=== PATIENT | male | born 1975 | race Caucasian/White ===

== ENCOUNTER 2020-01-10 13:10 | Outpatient (REF) | payer BC, SELFPAY | END 2020-01-10 13:11 | disposition home or self-care (01) | LOC: HO.LAB 13:10 | PROVIDERS: Visit Provider Internal Medicine | DX: Z20.828 Contact with and (suspected) exposure to other viral communicable diseases (principal) | CPT/HCPCS: C9803; U0003 ==

== ENCOUNTER 2021-03-05 06:14 | Outpatient (REF) | payer BC, SELFPAY ==
[2021-03-05 07:21] LABS: Appearance Urine HAZY; Color Urine YELLOW; Glucose Urine UA NEG (NEG); Leukocyte Esterase Urine NEG (NEG); Nitrite Urine NEG (NEG); Specific Gravity - Urine >= 1.030 (1.005-1.025); UACC Culture Trigger NO; Urine Blood 1+ (NEG); Urine Ketones NEG (NEG); Urine Protein TRACE MG/DL (NEG-TRACE)
[2021-03-05 07:24] LABS: Basophils Percent Auto 0.5 % (0-2); Eosinophils Absolute Auto 0.1 X10*3/uL (0.0-0.4); Hemoglobin 14.5 g/dl (14.0-18.0); Imm Gran Abs Auto 0.01 X10*3/uL (0.00-0.03); Imm Gran Pct Auto 0.1 % (0.0-0.4); Lymphocytes Percent Auto 69.1 % (20-40); MANUAL DIFF FLAG SCAN; Mean Corpuscular HGB Conc 33.7 g/dl (31.0-36.0); Mean Corpuscular Hemoglobin 28.7 pg (27.0-33.0); Mean Corpuscular Volume 85.1 fL (80.0-98.0); Mean Platelet Volume 9.8 fL (9.4-12.4); Monocytes Absolute Auto 0.4 X10*3/uL (0.1-1.2); Monocytes Percent Auto 4.4 % (2-11); Neutrophils Absolute Auto 2.2 x10*3/uL (2.0-8.3); Neutrophils Percent Auto 24.9 % (45-73); Platelet Count 145 X10*3/uL (160-400); Red Blood Count 5.05 X10*6/uL (4.60-5.80); SCAN SMEAR FLAG 1; White Blood Count 8.7 X10*3/uL (4.8-10.8)
[2021-03-05 07:46] LABS: Mucus Urine 4+ /LPF; Squamous Epithelial Cell Urine TRACE /LPF; WBC Urine 0 /HPF (0-4)
[2021-03-05 07:56] LABS: SLIDE REVIEW VERIFIED
[2021-03-05 08:10] LABS: Alanine Aminotransferase 13 U/L (0-40); Albumin Level 4.3 g/dL (3.5-5.0); Alkaline Phosphatase 45 U/L (39-117); Anion Gap 11 (12-20); Aspartate Amino Transferase 11 U/L (5-37); Bilirubin Total 0.5 mg/dL (0.0-1.0); Blood Urea Nitrogen 13 mg/dL (9-16); Calcium 9.1 mg/dL (8.4-10.2); Carbon Dioxide 27 mmol/L (22-29); Chloride 106 mmol/L (96-108); Cholesterol 232 mg/dL; Estimated Glomerular Filt Rate > 60; Glucose Fasting 108 mg/dL (60-99); HDL Cholesterol 48 mg/dL; LDL Cholesterol Calculated 161 mg/dl; Potassium 4.1 mmol/L (3.3-5.1); Sodium 140 mmol/L (135-145); Total Protein 6.5 g/dL (6.5-8.0); Triglycerides 115 mg/dL
[2021-03-05 08:15] LABS: TSH reflex Free T4 1.24 uIU/mL (0.32-4.0); Vitamin D 25-OH Total 15.9 ng/mL (>30)
== END 2021-03-05 06:15 | disposition home or self-care (01) ==
LOC: HO.LAB 06:14
PROVIDERS: PCP Internal Medicine; Visit Provider Internal Medicine
DX: Z00.00 Encounter for general adult medical examination without abnormal findings (principal); E78.00 Pure hypercholesterolemia, unspecified; E55.9 Vitamin D deficiency, unspecified
CPT/HCPCS: 36415; 80053; 80061; 81001; 82306; 84443; 85025

== ENCOUNTER 2021-03-14 08:45 | Outpatient (REF) | payer BC, SELFPAY ==
--- NOTE | 2021-03-14 08:49 | EMG_ITS ---
This is a 45-year-old man with left upper extremity pain in the forearm and arm off and on for 2 months. He has had a couple of courses of Medrol, which helped briefly. His neurological examination is normal. There is no Tinel or Phalen sign. IMPRESSION: Rule out cervical radiculopathy. Nerve conduction EMG study: Early carpal tunnel syndrome on the left, which appears to be an incidental finding. Normal EMG of the left C5-T1 innervated muscles. MD ELBA Burkett/[facility] / [id number]
== END 2021-03-14 08:46 | disposition home or self-care (01) ==
LOC: HO.NEURO 08:45
PROVIDERS: PCP Internal Medicine; Visit Provider Internal Medicine
DX: R20.2 Paresthesia of skin (principal)
CPT/HCPCS: 95885; 95910

== ENCOUNTER → 2021-06-06 08:06 | Outpatient (BNVA) | payer BC, SELFPAY | PROVIDERS: PCP Internal Medicine; Referring Provider Internal Medicine; Visit Provider Physician Assistant | DX: Z13.89 Encounter for screening for other disorder (principal) ==

== ENCOUNTER 2021-10-09 10:26 | Day surgery (SDC) | payer BC, SELFPAY ==
[2021-10-03 16:01] VITALS: BMI 21.4
--- NOTE | 2021-10-08 10:10 | HO.ANESPROP2 ---
Documented by User: Julieth Beauchamp NP 10/08/21 10:12 HPI - Anesthesia Eval Consult details Narrative: 46yo M for Colonoscopy PMF Active Problems Active Problems: All Active Problems (Updated 06/06/21 @ 08:20 by Nidia Donovan PA-C) Carpal tunnel syndrome of left wrist (Acute) Vitamin D deficiency (Acute) Pure hypercholesterolemia (Acute) Colon cancer screening (Acute) Constipation (Acute) Depression (Acute) Anxiety (Acute) Paresthesia of left arm (Acute) Annual physical exam (Acute) Elbow pain, left (Acute) Chest pain (Acute) Cervical radiculopathy (Acute) Past Medical History Medical History Anxiety Carpal tunnel syndrome of left wrist Constipation Depression Pure hypercholesterolemia Vitamin D deficiency Family History Family History Father No problems noted. Mother No problems noted. Surgical History Surgical History No pertinent past surgical history Social History Social History Housing: House Alcohol intake: current Alcohol intake frequency: holidays/special occasions only Patient Tobacco Use Status: Former Tobacco user Quit Date: 2016 Second Hand Smoke Exposure: Yes Use of substances other than those prescribed or required for medical reasons: Yes Substance Use Frequency: Occasionally Are you DNR?: No Advance Directives: No Advance Directives Information Provided: Yes service: No Current occupational status: employed Cognitive needs: No Hearing needs: No Vision needs: No Meds Allergies Allergy/AdvReac Type Severity Reaction Status Date / Time No Known Allergies Allergy Verified 06/06/21 08:16 [No Known Allergies*] Exam Exam Date and Time: October 08, 2021 1010 Height,Weight and Vital Signs: Height 6 ft 1 in Weight 73.936 kg Pertinent Lab Results Pertinent Lab Results: Laboratory Tests 03/05/21 03/05/21 06:28 06:28 WBC 8.7 Hgb 14.5 Hct 43.0 Plt Count 145 L Sodium 140 Potassium 4.1 Chloride 106 Carbon Dioxide 27 BUN 13 Creatinine 0.79 Assessment and Plan Assessment Anesthesia Assessment: Chart Reviewed Documented by User: Aleja Henley MD 10/09/21 11:08 PMFSH Past Medical History Medical History Anxiety Carpal tunnel syndrome of left wrist Constipation Depression Pure hypercholesterolemia Vitamin D deficiency Family History Family History Father No problems noted. Mother No problems noted. Surgical History Surgical History No pertinent past surgical history History of Problems with Anesthesia: No Social History Social History Housing: House Alcohol intake: current Alcohol intake frequency: holidays/special occasions only Patient Tobacco Use Status: Former Tobacco user Quit Date: 2016 Second Hand Smoke Exposure: Yes Use of substances other than those prescribed or required for medical reasons: Yes Substance Use Frequency: Occasionally Are you DNR?: No Advance Directives: No Advance Directives Information Provided: Yes service: No Current occupational status: employed Cognitive needs: No Hearing needs: No Vision needs: No Meds Allergies Allergy/AdvReac Type Severity Reaction Status Date / Time No Known Allergies Allergy Verified 06/06/21 08:16 [No Known Allergies*] Exam Airway Mallampati Class: II TM Dist: >3cm Neck ROM: Full Loose/Missing/Broken Teeth: No Heart: RRR Lungs: CTA Assessment and Plan Assessment Anesthesia Assessment: Anesthesia Plan Discussed Final Anesthetic Review History of Problems with Anesthesia: No NPO: Yes ASA Class: II Final Preanesthetic Review: Meds/Allgs Chart Reviewed, Consent Obtained/Reviewed and Anes Risks/Benef Reviewed Patient Risk: Low Procedure Risk: Low Anesthetic Plan Anesthetic Plan: MAC: Disposition: Standard PACU
[2021-10-09 10:41] VITALS: BP 128/81; PULSE 94; RESP 16; TEMP 36.7; O2SAT 96
[2021-10-09] MEDS: Lactated Ringers 1,000 ML 100 ML IVCONT (10:49)
--- NOTE | 2021-10-09 10:49 | MHC.SHP ---
Pre-Procedural Eval Section A Date of Service: 10/09/21 Section B Chief Complaint: screening Relevant Family History (Specify if Yes): No Relevant Social History: None Present Medications: see Short Stay Collaborative assessment Medical History: Significant History (Anxiety Carpal tunnel syndrome of left wrist Constipation Depression Pure hypercholesterolemia Vitamin D deficiency) History of Previous Operations: No relevant previous surgery Allergies: Allergies Allergy/AdvReac Type Severity Reaction Status Date / Time No Known Allergies Allergy Verified 06/06/21 08:16 [No Known Allergies*] Review of Systems Sugical H&P ROS: Negative: Constitution, Cardiovascular, Respiratory, Neurological, Psychiatric, Hem-Onc, Allergic/Immunologic, Gastrointestinal, Genitourinary, Musculoskeletal, Integumentary, Endocrine and Eyes/Ears/Nose/Throat Exam Surgical H&P Exam: Normal: HEENT, Normal: Heart, Normal: Lungs, Normal: Extremities, Normal: Abdomen, Normal: Skin and Normal: Neurological Plan Diagnosis/Plan: Unchanged I have reviewed the history and physical and performed a pertinent physical examination on my patient. No changes have occurred unless specified.
--- NOTE | 2021-10-09 12:43 | W.PM.OPN ---
Operative Note Operative Note Date of Service: 10/09/21 Narrative: Operative Information Procedure Description: Colonoscopy Indication: screening Anesthesia: MAC COLONOSCOPY Instrument: Olympus variable stiffness pediatric scope 190L Colonoscopy Monitoring: Vital signs and clinical assessment, continuous EKG monitoring, Pulse oximetry, Carbon Dioxide monitoring and blood pressure monitoring were done throughout the procedure. Colon withdrawal time was 75 minutes. Procedure: The patient was placed in the left lateral decubitis position and pre-procedure medications were administered. After a digital rectal examination of the ano-rectum, the video colonoscope was inserted into the rectum and advanced through the colon to the cecum/TI. The colonoscope was slowly withdrawn in a retrograde panoramic fashion and the colon mucosa was carefully examined including a retroflexed view of the rectum. Findings and interventions are described below. Procedure Difficulty: easy Findings: Terminal Ileum-normal Cecum:normal Ascending Colon: laterally spreading granular polypoid lesion noted- Andressa IIa measuring about 2-3 cm. This was lifted with ERBE jet and then removed with hot snare. Small amount of residual tissue was removed with biopsy forceps and then the base was treated with 30 W of APC. 4 clips were applied with closure of defect and then hemospray applied Transverse Colon -normal Descending Colon: 10-12 mm sessile polyp removed with cold snare Sigmoid Colon: normal Rectum: Retroflexion with moderate sized internal hemorrhoids, grade I, 2 cm semipedunculated polypoid lesion noted at around 8-10 cm from anal verge. This was injected with few cc of epinephrine and then removed with hot snare, with x 2 clips applied. Anorectum - normal Colon preparation: [place] Bowel Preparation Scale Right colon; 3 Transverse colon: 3 Left colon; 3 (0 = Unprepared colon segment with mucosa not seen due to solid stool that cannot be cleared. 1 = Portion of mucosa of the colon segment seen, but other areas of the colon segment not well seen due to staining, residual stool and/or opaque liquid. 2 = Minor amount of residual staining, small fragments of stool and/or opaque liquid, but mucosa of colon segment seen well. 3 = Entire mucosa of colon segment seen well with no residual staining, small fragments of stool or opaque liquid) Impression and Post Procedure Diagnosis: polyps internal hemorrhoids Plan: High fiber diet leaflet Avoid straining at stool, epsom salts and sitz bath, anusol supps or cream Repeat Colonoscopy in 3-6 months or earlier if clinically indicated To come to ED if any worsening abdominal pain, fevers, bloody stools avoid nsaids for 5 days Above findings were reviewed with the patient and relevant handouts were provided if indicated.
[2021-10-09 12:51] VITALS: BP 117/71; PULSE 65; RESP 16; TEMP 36.1; O2SAT 99
[2021-10-09 13:06] VITALS: BP 123/76; PULSE 61; RESP 12; TEMP 36.3; O2SAT 99
== END 2021-10-09 13:38 | disposition home or self-care (01) ==
LOC: HO.SSS 10:26
PROVIDERS: PCP Internal Medicine; Visit Provider Internal Medicine Gastroenterology
PROC: 0DJD8ZZ Inspection of Lower Intestinal Tract, Via Natural or Artificial Opening Endoscopic (ICD-10-PCS; CPT 45378; principal; 2021-10-09 11:40)
DX: Z12.11 Encounter for screening for malignant neoplasm of colon (principal); D12.2 Benign neoplasm of ascending colon; D12.8 Benign neoplasm of rectum; K63.5 Polyp of colon; K64.0 First degree hemorrhoids; K59.00 Constipation, unspecified; F41.1 Generalized anxiety disorder; E78.00 Pure hypercholesterolemia, unspecified; E55.9 Vitamin D deficiency, unspecified; F32.A Depression, unspecified; Z79.899 Other long term (current) drug therapy; Z87.891 Personal history of nicotine dependence
CPT/HCPCS: 45385; 45380; 45381; 88305; C2618; J0171; J1610; J2250; Q9968

== ENCOUNTER 2022-01-11 08:46 | Outpatient (REF) | payer BC, SELFPAY ==
[2022-01-11 12:01] LABS: Alanine Aminotransferase 13 U/L (0-40); Albumin Level 4.3 g/dL (3.5-5.0); Alkaline Phosphatase 46 U/L (39-117); Anion Gap 16 (12-20); Aspartate Amino Transferase 17 U/L (5-37); Bilirubin Total 0.9 mg/dL (0.0-1.0); Blood Urea Nitrogen 12 mg/dL (9-16); Calcium 8.8 mg/dL (8.4-10.2); Carbon Dioxide 25 mmol/L (22-29); Chloride 103 mmol/L (96-108); Cholesterol 210 mg/dL; Estimated Glomerular Filt Rate > 60; Glucose Fasting 97 mg/dL (60-99); HDL Cholesterol 50 mg/dL; LDL Cholesterol Calculated 146 mg/dl; Potassium 4.5 mmol/L (3.3-5.1); Sodium 139 mmol/L (135-145); Total Protein 6.5 g/dL (6.5-8.0); Triglycerides 73 mg/dL
[2022-01-11 12:21] LABS: TSH reflex Free T4 0.62 uIU/mL (0.32-4.0)
== END 2022-01-11 08:47 | disposition home or self-care (01) ==
LOC: HO.HMGCLDS 08:46
PROVIDERS: PCP Internal Medicine; Visit Provider Internal Medicine
DX: E55.9 Vitamin D deficiency, unspecified (principal); E78.00 Pure hypercholesterolemia, unspecified
CPT/HCPCS: 36415; 80053; 80061; 82306; 84443

== ENCOUNTER → 2023-11-20 14:04 | Outpatient (BNVA) | payer SELFPAY | PROVIDERS: PCP Internal Medicine; Visit Provider Physician Assistant Medical | DX: Z02.79 Encounter for issue of other medical certificate (principal) ==

== ENCOUNTER 2024-02-10 16:34 | Outpatient (AMB) | payer SELFPAY ==
[2024-02-10 16:36] VITALS: BP 120/72; PULSE 78; O2SAT 96; BMI 23.1
--- NOTE | 2024-02-10 16:36 | MHC.PC.OV ---
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 Accompanied by: Self / Same As Patient Allergies No Known Allergies [No Known Allergies*] Allergy (Verified 02/11/24 04:42) Medication List - Last Reconciled 02/11/24 by Kaden Rinaldi MD citalopram 10 mg PO DAILY 90 days Tobacco use date assessed: 02/10/24 Dental Screening Dental Screen Date: 02/10/24 Did you have a dental visit in the last 12 months?: No Did you have a dental problem in the last 6 months where you did not have access to dental care?: No Was dental information given to patient?: No HPI PE HPI Details Patient comes in today for his annual physical examination He has not been back in over 2 years - was last seen on 11/23/2021 Patient states that he feels well and that his mood disorder is doing well on his current medication - is still on Citalopram at 10 mg once a day He denies any headaches or dizziness Denies any chest pains, no increased shortness of breath No nausea/vomiting, no abdominal pain No change in bowel habits noted He denies any acute urinary symptoms He had his screening colonoscopy done back in October 2021 - he had some villous and tubulovillous adenomas removed during his colonoscopy and he was advised to have a repeat colonoscopy done in 3-6 months but patient was lost to follow-up until now We will try to get him back in with gastroenterology to get his colonoscopy repeated [facility] Medical History (Updated 02/11/24 @ 04:49 by Kaden Rinaldi MD) Tubulovillous adenoma of colon Carpal tunnel syndrome of left wrist Vitamin D deficiency Pure hypercholesterolemia Constipation Depression Anxiety Surgical History Hx of colonoscopy (~10/09/21) No pertinent past surgical history Family History Father No problems noted. Mother No problems noted. Social History Housing: House Alcohol intake: current Alcohol intake frequency: holidays/special occasions only Patient Tobacco Use Status: Former Tobacco user e-Cigarette/Vaping Use: Never Used Second Hand Smoke Exposure: Yes service: No Current occupational status: employed Cognitive needs: No Hearing needs: No Vision needs: No Questionnaire PHQ-9 Over the last 2 weeks, how often have you been bothered by any of the following problems? 1. Little interest or pleasure in doing things: not at all 2. Feeling down, depressed, or hopeless: not at all 3. Trouble falling or staying asleep, or sleeping too much: not at all 4. Feeling tired or having little energy: not at all 5. Poor appetite or overeating: not at all 6. Feeling bad about yourself - or that you are a failure or have let yourself or your family down: not at all 7. Trouble concentrating on things, such as reading the newspaper or watching television: not at all 8. Moving or speaking so slowly that other people could have noticed. Or the opposite - being so fidgety or restless that you have been moving around a lot more than usual: not at all 9. Thoughts that you would be better off or of hurting yourself in some way: not at all Total score: 0 Depression Screening Interpretation: Negative (is on Rx for depression and anxiety) Depression Screening Done: Yes 45718 - PHQ-9 Billing: Yes Source: Developed by Drs. Domenic Andrews, Anju Myers, Joce Echavarria and colleagues, with an educational eros from [employer]. Thrive Questionnaire Date Thrive assessed: 02/10/24 I am a: Patient What is your living situation today?: I have a steady place to live Within the past 12 months, did the food you bought not last and you didn't have the money to get more?: Never true Within the past 12 months, did you worry whether your food would run out before you got money to buy more?: Never true Do you have trouble paying for medicines?: No Do you have trouble getting transportation to medical appointments?: No Do you have trouble paying your heating and electricity bill?: No Do you have trouble taking care of your child, family member or friend?: No Do you have trouble with day-to-day activities such as bathing, preparing meals, shopping, managing finances, etc.?: No Are you currently unemployed and looking for a job?: No Are you interested in more education?: No Please select the resources that you would like help with: None Currently or been in a relationship where the following occur: No concerns reported THRIVE Score: 0 AUDIT C Alcohol Use Questionnaire (AUDIT-C) 1. How often do you have a drink containing alcohol?: 2-3 times a week 2. How many drinks containing alcohol do you have on a typical day when you are drinking?: 1 or 2 3. How often do you have six or more drinks on one occasion?: Never Total Score: 3 Score Reviewed/Action Taken: Yes ANA-7 AMB Questionnaire ANA-7 Date ANA - 7 assessed: 02/10/24 Feeling nervous, anxious, or on edge: 0 = Not at all Not being able to stop or control worryin = Not at all Worrying too much about different things: 0 = Not at all Trouble relaxin = Not at all Being so restless that it is hard to sit still: 0 = Not at all Becoming easily annoyed or irritable: 0 = Not at all Feeling afraid as if something awful might happen: 0 = Not at all Total ANA-7 score (0-4 normal; 5-9 mild; 10-14 moderate; 15-21 severe): 0 Source: Developed by Drs. Domenic Andrews, Anju Myers, Joce Echavarria and colleagues, with an educational eros from [employer]. Review of Systems Const Denies chills, Denies fatigue, Denies fever(s), Denies headache(s), Denies malaise and Denies weakness Eyes Denies blurry vision, Denies change in vision, Denies irritation and Denies itchy eyes ENT Denies dysphagia, Denies dizziness, Denies otalgia, Denies headache(s), Denies nasal congestion, Denies neck pain, Denies odynophagia and Denies sore throat Card Denies chest pain, Denies rapid heart rate, Denies irregular heart rhythm, Denies palpitations and Denies dyspnea Resp Denies chest congestion, Denies cough, Denies dyspnea and Denies wheezing GI Denies abdominal pain, Denies bloating, Denies constipation, Denies dysphagia, Denies heartburn, Denies diarrhea, Denies nausea, Denies odynophagia and Denies vomiting Denies hematuria, Denies difficulty urinating, Denies dysuria, Denies urinary frequency and Denies urinary urgency Musc Denies back pain, Denies arthralgias, Denies joint swelling, Denies muscle weakness and Denies neck pain Skin/Breast Denies change in pigmentation, Denies lesions, Denies rash and Denies unusual bruising Neuro Denies dizziness, Denies headache(s), Denies paresthesias and Denies weakness Endo Denies fatigue and Denies palpitations Aller/Immun Denies itchy eyes and Denies wheezing Physical exam (Primary Care) Vital Signs: Last Vital Signs Pulse 78 02/10/24 16:36 BP 120/72 02/10/24 16:36 Pulse Ox 96 02/10/24 16:36 Oxygen Delivery Method Room Air 02/10/24 16:36 BMI result Body Mass Index 23.1 Tobacco/Smoking Status: Tobacco use Status Tobacco use date assessed 02/10/24 02/10/24 16:41 Patient Tobacco Use Status Former Tobacco user 02/10/24 16:41 e-Cigarette/Vaping Use Never Used 02/10/24 16:41 PHQ-9: PHQ-9 Score PHQ-9: Total score 0 02/10/24 16:50 Depression Screening Interpretation: Negative (is on Rx for depression and anxiety) Thrive Assessment: Date of Thrive Assessment Date Thrive assessed 02/10/24 02/10/24 16:41 Currently or been in a relationship where the following occur: No concerns reported Const General: no acute distress, alert and awake Orientation/consciousness: patient oriented x3 HENMT Head: Yes normocephalic and Yes atraumatic Ears: external ears normal, TM's normal bilaterally and EAC's normal General nose exam: No nasal discharge present Face and sinus: Yes normal facial exam and Yes sinuses nontender Teeth and gingiva: dentition normal Throat: Yes posterior oropharynx normal and Yes tonsils normal (no TP congestion) Eyes Eyelids: Yes eyelids normal Conjunctivae: conjunctivae normal Pupils: Equal, round and reactive pupils present EOM: EOMs intact bilaterally Neck Neck: Yes supple and No lymphadenopathy Thyroid: Thyroid normal Resp Auscultation: clear to auscultation bilaterally, no rales and no wheezes Cardio Rate: regular rate Rhythm: regular rhythm Heart sounds: no murmurs GI Palpation (GI): Soft to palpation, nontender and No hepatosplenomegaly present Auscultation: normal bowel sounds General: Yes no CVA tenderness Back/Spine/Pelvis Back: no CVA tenderness Thoracic/Lumbar Spine: thoracic and lumbar spine normal to inspection Skin Lesions: no lesions Rashes: no rashes Neuro General: patient oriented x3, moves all extremities, no focal motor deficits and CN's II-XI intact bilaterally Cranial nerves: Yes Equal, round and reactive pupils present Cognition (Neuro): normal cognition Gait exam (Neuro): Normal gait present Extrem General: Yes no clubbing, cyanosis or edema Coding Level of Care Code Est Pt Prev Care 40-64y(19716) Diagnoses Annual physical exam Z00.00 Pure hypercholesterolemia E78.00 Vitamin D deficiency E55.9 Carpal tunnel syndrome of left wrist G56.02 Constipation, unspecified constipation type K59.00 Constipation type: unspecified constipation type Anxiety F41.9 Episode of recurrent major depressive disorder, unspecified depression episode severity F33.9 Depression Type: major depressive disorder Major depression recurrence: recurrent Active/Remission status: currently active Major depression episode severity: unspecified Tubulovillous adenoma of colon D12.6 Additional Codes PHQ-9 - 21043 - PHQ-9 Billing: Yes ([id number]) Assessment & Plan Assessment & Plan (1) Annual physical exam: Code(s): Z00.00 - Encounter for general adult medical examination without abnormal findings Category: Medical Plan: Check labs (2) Pure hypercholesterolemia: Code(s): E78.00 - Pure hypercholesterolemia, unspecified Category: Medical Plan: Reinforced low-cholesterol diet Patient is reminded that his cholesterol levels were still elevated when they were last checked a couple of years ago in January 2022, with his total cholesterol at 210 mg/dL and LDL cholesterol 146 mg/dL Will have him recheck his fasting lipids [facility] [place] (3) Vitamin D deficiency: Code(s): E55.9 - Vitamin D deficiency, unspecified Category: Medical Plan: Continue Vitamin D3 2000 units QD Will recheck his Vitamin D level as well for follow up (4) Carpal tunnel syndrome of left wrist: Code(s): G56.02 - Carpal tunnel syndrome, left upper limb Category: Medical Plan: EMG & NCV done in March 2021 revealed (+) early carpal tunnel syndrome on his left upper extremity; EMG is normal EMG and NCV findings are normal on the right upper extremity Reinforced use of wrist splints as needed to help manage his left wrist symptoms - states that his left wrist has not really been bothering him too much lately (5) Constipation: Comment: consistent bowel regimen- HFD Code(s): K59.00 - Constipation, unspecified Category: Medical Qualifiers: Constipation type: unspecified constipation type Qualified Code(s): K59.00 - Constipation, unspecified Plan: He is again encouraged on increased oral fluids and dietary fiber States that his constipation has been controlled on Miralax 17 gm QD (6) Anxiety: Code(s): F41.9 - Anxiety disorder, unspecified Category: Medical Plan: He is doing well on Citalopram 10 mg QD (7) Depression: Code(s): F32.A - Depression, unspecified Category: Medical Qualifiers: Depression Type: major depressive disorder Major depression recurrence: recurrent Active/Remission status: currently active Major depression episode severity: unspecified Qualified Code(s): F33.9 - Major depressive disorder, recurrent, unspecified Plan: Continue Citalopram 10 mg QD Follow up with psychiatry as scheduled (8) Tubulovillous adenoma of colon: Code(s): D12.6 - Benign neoplasm of colon, unspecified Category: Medical Plan: Patient was supposed to have a repeat colonoscopy done in 3-6 months following his previous one done in October 2021 but was somehow lost to follow-up As he is presenting again today for his annual physical examination, will also take the opportunity to refer him back to gastroenterology [facility] [place] repeat colonoscopy He is again reminded that due to his colonoscopy findings, recommended that all of his first-degree relatives should begin their own colon cancer screening no later than age 35 Plan Follow-up in 6 months Orders: Orders Complete Blood Count Auto Diff 02/10/24 D64.9 - Anemia, unspecified, Z00.00 - Encounter for general adult medical examination without abnormal findings Lipid Panel 02/10/24 E78.00 - Pure hypercholesterolemia, unspecified, Z00.00 - Encounter for general adult medical examination without abnormal findings Vitamin D 25-OH Total 02/10/24 E55.9 - Vitamin D deficiency, unspecified, Z00.00 - Encounter for general adult medical examination without abnormal findings Comprehensive Success. Panel Fast 02/10/24 E78.00 - Pure hypercholesterolemia, unspecified, Z00.00 - Encounter for general adult medical examination without abnormal findings TSH reflex Free T4 02/10/24 E78.00 - Pure hypercholesterolemia, unspecified, Z00.00 - Encounter for general adult medical examination without abnormal findings UA CC w/rflx Micro + Cult 02/10/24 R30.0 - Dysuria, Z00.00 - Encounter for general adult medical examination without abnormal findings Prostate Specific Antigen Scr 02/10/24 Z00.00 - Encounter for general adult medical examination without abnormal findings Hemoglobin A1c 02/10/24 R73.9 - Hyperglycemia, unspecified, Z00.00 - Encounter for general adult medical examination without abnormal findings Referrals Gastroenterology Referral Z12.11 - Encounter for screening for malignant neoplasm of colon Medications: Changed From citalopram 10 mg PO DAILY 90 tabs 0RF To citalopram 10 mg PO DAILY 90 days 90 tabs 1RF
== END 2024-02-10 16:54 | disposition home or self-care (01) ==
PROVIDERS: PCP Internal Medicine; Visit Provider Internal Medicine
DX: Z00.00 Encounter for general adult medical examination without abnormal findings (principal); E78.00 Pure hypercholesterolemia, unspecified; E55.9 Vitamin D deficiency, unspecified; F33.9 Major depressive disorder, recurrent, unspecified; G56.02 Carpal tunnel syndrome, left upper limb; K59.00 Constipation, unspecified; F41.9 Anxiety disorder, unspecified; D12.6 Benign neoplasm of colon, unspecified

== ENCOUNTER → 2024-02-10 16:34 | Outpatient (BNVA) | payer SELFPAY | PROVIDERS: PCP Internal Medicine; Visit Provider Internal Medicine | DX: Z00.00 Encounter for general adult medical examination without abnormal findings (principal); E78.00 Pure hypercholesterolemia, unspecified; E55.9 Vitamin D deficiency, unspecified; G56.02 Carpal tunnel syndrome, left upper limb; K59.00 Constipation, unspecified; F41.9 Anxiety disorder, unspecified; F33.9 Major depressive disorder, recurrent, unspecified; Z79.899 Other long term (current) drug therapy; Z86.0101 Personal history of adenomatous and serrated colon polyps | CPT/HCPCS: 96127; 99396 ==

== ENCOUNTER 2024-03-06 09:03 | Outpatient (REF) | payer BC, SELFPAY ==
[2024-03-06 09:16] LABS: MANUAL DIFF FLAG NO
[2024-03-06 10:00] LABS: Basophils Percent Auto 0.5 % (0-2); Eosinophils Absolute Auto 0.1 X10*3/uL (0.0-0.4); Eosinophils Percent Auto 1.2 % (0-4); Hematocrit 42.4 % (42.0-52.0); Hemoglobin 14.6 g/dl (14.0-18.0); Imm Gran Abs Auto 0.02 X10*3/uL (0.00-0.03); Imm Gran Pct Auto 0.3 % (0.0-0.4); Lymphocytes Absolute Auto 3.6 X10*3/uL (1.2-4.9); Mean Corpuscular HGB Conc 34.4 g/dl (31.0-36.0); Mean Corpuscular Hemoglobin 28.3 pg (27.0-33.0); Mean Corpuscular Volume 82.2 fL (80.0-98.0); Mean Platelet Volume 9.4 fL (9.4-12.4); Monocytes Absolute Auto 0.3 X10*3/uL (0.1-1.2); Monocytes Percent Auto 5.1 % (2-11); Neutrophils Percent Auto 32.9 % (45-73); Platelet Count 153 X10*3/uL (160-400); Red Blood Count 5.16 X10*6/uL (4.60-5.80); Red Cell Distribution Width 12.4 % (11.0-16.0)
[2024-03-06 10:19] LABS: Estimated Average Glucose 97 mg/dL; Hemoglobin A1C 119.1349 umol/L; Total Hemoglobin (HGBA1C) 3816.1323 umol/L
[2024-03-06 10:23] LABS: Color Urine Yellow; Glucose Urine UA Negative (Negative); Leukocyte Esterase Urine Negative (Negative); Nitrite Urine Negative (Negative); Urine Blood Negative (Negative); Urine Ketones 15 mg/dL (Negative); Urine Protein Negative (Neg-Trace)
[2024-03-06 10:24] LABS: Appearance Urine Clear
[2024-03-06 10:30] LABS: Alanine Aminotransferase 16 U/L (0-40); Albumin Level 4.4 g/dL (3.5-5.0); Alkaline Phosphatase 51 U/L (39-117); Anion Gap 12 (12-20); Aspartate Amino Transferase 20 U/L (5-37); Bilirubin Total 0.9 mg/dL (0.0-1.0); Blood Urea Nitrogen 12 mg/dL (9-16); Calcium 9.4 mg/dL (8.4-10.2); Carbon Dioxide 27 mmol/L (22-29); Chloride 107 mmol/L (96-108); Cholesterol 232 mg/dL (<200); Estimated Glomerular Filt Rate > 60; Glucose Fasting 101 mg/dL (60-99); HDL Cholesterol 47 mg/dL (>40); LDL Cholesterol Calculated 168 mg/dL (<100); Potassium 4.3 mmol/L (3.3-5.1); Sodium 142 mmol/L (135-145); Total Protein 6.9 g/dL (6.5-8.0); Triglycerides 87 mg/dL (<150)
[2024-03-06 10:43] LABS: Prostate Specific Antigen Scr 0.32 ng/mL (<0.05-4.0)
[2024-03-06 10:47] LABS: TSH reflex Free T4 1.36 uIU/mL (0.32-4.0); Vitamin D 25-OH Total 30.9 ng/mL (>30)
== END 2024-03-06 09:04 | disposition home or self-care (01) ==
LOC: HO.LAB 09:03
PROVIDERS: PCP Internal Medicine; Visit Provider Internal Medicine
DX: Z00.00 Encounter for general adult medical examination without abnormal findings (principal); E78.00 Pure hypercholesterolemia, unspecified; E55.9 Vitamin D deficiency, unspecified; R30.0 Dysuria; R73.9 Hyperglycemia, unspecified; D64.9 Anemia, unspecified; Z12.5 Encounter for screening for malignant neoplasm of prostate
CPT/HCPCS: 36415; 80053; 80061; 81003; 82306; 83036; 84153; 84443; 85025

== ENCOUNTER 2024-04-23 10:39 | Outpatient (AMB) | payer BC, SELFPAY ==
--- NOTE | 2024-04-23 10:41 | A.OFFVIS_ITS ---
Vital Signs 04/23/24 10:42 Height 6 ft Weight 178 lb 9.191 oz BMI 24.2 BP 117/62 Blood Pressure Location Lt brachial Position Sitting Pulse 71 Intake Visit Reasons: rediscuss colonoscopy Intake Note: presents in the office as a colo screening to rajni. CC: states he has a growling in his stomach at times but other than that he feels okay with no GI concerns. Allergies No Known Allergies [No Known Allergies*] Allergy (Verified 04/23/24 10:44) HPI HPI rediscuss colonoscopy: Details: 48 yr old m here for f/u He is overdue on colonoscopy, he had index colonoscopy 2021 with several polyps noted, some were large and were tubulovillous grandfather had pancreatic cancer no FH of CRC stools can be small sometimes, like balls no blood no abdominal pain EXAM: GENERAL: The patient is well developed and nontoxic. VITAL SIGNS:see workflow HEENT: Nonicteric sclerae, PERRLA, EOMI. Oropharynx clear. Moist mucous membra mohini. Conjunctivae appear well perfused. No thyroid mass. CHEST: Chest wall is nontender. HEART: Regular rate and rhythm without murmurs. LUNGS: Clear to auscultation bilaterally. ABDOMEN: Soft, positive bowel sounds, nontender, no organomegaly.no flank tenderness SKIN: No rash, no excessive bruising, petechiae, or purpura. NEUROLOGIC: Cranial nerves II-XII intact without motor/sensory deficit. Psych: normal affect A/P: 1/ Large polyps on index colo--overdue on surveillance PLAN: 1/ colonoscopy with suprep OLIVIA--have hybrid APC on standby 2/ hand referral, tender nodule on left index finger PFSH Medical History Tubulovillous adenoma of colon Carpal tunnel syndrome of left wrist Vitamin D deficiency Pure hypercholesterolemia Constipation Depression Anxiety Surgical History Hx of colonoscopy (~10/09/21) No pertinent past surgical history Family History Father No problems noted. Mother No problems noted. Social History Housing: House Alcohol intake: current Alcohol intake frequency: holidays/special occasions only Patient Tobacco Use Status: Former Tobacco user e-Cigarette/Vaping Use: Never Used Second Hand Smoke Exposure: Yes service: No Current occupational status: employed Cognitive needs: No Hearing needs: No Vision needs: No Physical Exam Vital Signs: Last Vital Signs Pulse 71 04/23/24 10:42 BP 117/62 04/23/24 10:42 BMI result Body Mass Index 24.2 Assessment & Plan Assessment & Plan (1) Tubulovillous adenoma of colon: Code(s): D12.6 - Benign neoplasm of colon, unspecified Category: Medical Plan: as above (2) Hand lesion: Code(s): L98.9 - Disorder of the skin and subcutaneous tissue, unspecified Category: Medical Plan as above Orders: Referrals Hand Surgery Referral L98.9 - Disorder of the skin and subcutaneous tissue, unspecified Medications: New sod sulf-pot chloride-mag sulf 1.479-0.188- 0.225 gram (Sutab) PO PER PKG DIR 22 tabs 0RF sodium,potassium,mag sulfates 17.5-3.13-1.6 gram (Suprep Bowel Prep Kit) DILUTE; drink 1/2 at 6-8 pm and half at 11 PM- 1AM 354 mL 0RF Coding Level of Care Code Est Pt Level 3 (48417) Diagnoses Tubulovillous adenoma of colon D12.6 Hand lesion L98.9
[2024-04-23 10:42] VITALS: BP 117/62; PULSE 71; BMI 24.2
== END 2024-04-23 11:08 | disposition home or self-care (01) ==
PROVIDERS: PCP Internal Medicine; Visit Provider Internal Medicine Gastroenterology
DX: D12.6 Benign neoplasm of colon, unspecified (principal); L98.9 Disorder of the skin and subcutaneous tissue, unspecified
CPT/HCPCS: 99213

== ENCOUNTER → 2024-04-23 10:39 | Outpatient (BNVA) | payer BC, SELFPAY | PROVIDERS: PCP Internal Medicine; Visit Provider Internal Medicine Gastroenterology ==

== ENCOUNTER 2024-05-14 15:07 | Outpatient (AMB) | payer BC, SELFPAY ==
--- NOTE | 2024-05-14 15:16 | MHC.OFFVIS ---
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 Patient reports he has been having this nodule near his 2nd MCP for many years and has been putting it off however he has pain when he accidentally bangs his finger. Allergies No Known Allergies [No Known Allergies*] Allergy (Verified 05/14/24 15:17) HPI HPI OCC MED PHYSICIAN-painful nodule index finger side: Details: is a 48 year old right hand dominant male who presents today as a new patient for evaluation of a painful nodule on his index finger. Patient reports he has been having this nodule near his 2nd MCP for many years and has been putting it off however he has pain when he accidentally bangs his finger. [facility]LY [facility] Medical History Tubulovillous adenoma of colon Carpal tunnel syndrome of left wrist Vitamin D deficiency Pure hypercholesterolemia Constipation Depression Anxiety Surgical History Hx of colonoscopy (~10/09/21) No pertinent past surgical history Family History Father No problems noted. Mother No problems noted. Social History Housing: House Alcohol intake: current Alcohol intake frequency: holidays/special occasions only Patient Tobacco Use Status: Former Tobacco user e-Cigarette/Vaping Use: Never Used Second Hand Smoke Exposure: Yes service: No Current occupational status: employed Cognitive needs: No Hearing needs: No Vision needs: No Review of Systems Const All systems reviewed & are unremarkable except as noted in HPI and below Physical Exam Vital Signs: BMI result Body Mass Index 23.7 Extrem Other: Patient is alert, oriented, and in no acute distress. Neuro: Normal sensation of the tips of all digits of the left hand at this time Vascular: Cap refill brisk Pain: Nodule noted on the left index finger is painful to palpation No pain with range of motion ROM: Patient was able to make a closed fist and extend all digits of the left hand fully and without difficulty Skin: Small nodule noted at the level of the MCP joint of the left index finger No lacerations or abrasions. General: No ecchymosis, erythema, or evidence of infection. Psych: Appears grossly normal Affect normal Attitude cooperative Assessment & Plan Assessment & Plan (1) Hand lesion: Code(s): L98.9 - Disorder of the skin and subcutaneous tissue, unspecified Category: Medical Plan 1. Nodule of left index finger Patient is educated about this condition Patient is educated about the treatment options available At this time, I feel it was best for the patient to see Dr. Wise for another evaluation and discussion of potential surgical intervention or further imaging if she feels this is necessary prior to any surgical intervention Patient was amenable to this plan Patient will follow-up for next available appointment Dr. Wise, sooner with any acute concerns Coding Level of Care Code New Pt Level 3 (47631) Diagnoses Hand lesion L98.9
[2024-05-14 15:17] VITALS: BMI 23.7
== END 2024-05-14 15:36 | disposition home or self-care (01) ==
LOC: HO.HOS 15:08
PROVIDERS: PCP Internal Medicine
DX: L98.9 Disorder of the skin and subcutaneous tissue, unspecified (principal)
CPT/HCPCS: 99203

== ENCOUNTER → 2024-05-14 15:07 | Outpatient (BNVA) | payer BC, SELFPAY | PROVIDERS: PCP Internal Medicine ==

== ENCOUNTER 2024-05-27 07:06 | Day surgery (SDC) | payer BC, SELFPAY ==
[2024-05-25 11:10] VITALS: BMI 24.3
--- NOTE | 2024-05-26 08:57 | HO.ANESPROP2 ---
Documented by User: Julieth Beauchamp NP 05/26/24 08:57 HPI - Anesthesia Eval Consult details Narrative: 48yo M for Colonoscopy PMFSH Active Problems Active Problems: All Active Problems Hand lesion (Acute) Hyperplastic colon polyp (Acute) Tubulovillous adenoma (Acute) Hemorrhoids (Acute) Villous adenoma (Acute) Colon cancer screening (Acute) Paresthesia of left arm (Acute) Annual physical exam (Acute) Elbow pain, left (Acute) Chest pain (Acute) Cervical radiculopathy (Acute) Tubulovillous adenoma of colon (Acute) Carpal tunnel syndrome of left wrist (Acute) Vitamin D deficiency (Acute) Pure hypercholesterolemia (Acute) Constipation (Acute) Depression (Acute) Anxiety (Acute) Past Medical History Medical History (Updated 04/23/24 @ 11:05 by Khushboo Burr MD) Tubulovillous adenoma of colon Carpal tunnel syndrome of left wrist Vitamin D deficiency Pure hypercholesterolemia Constipation Depression Anxiety Family History Family History Father No problems noted. Mother No problems noted. Surgical History Surgical History (Updated 05/25/24 @ 11:05 by Gillian Panchal RN) Hx of colonoscopy (~10/09/21) History of Problems with Anesthesia: No Social History Social History Housing: House Alcohol intake: current Alcohol intake frequency: does not drink Patient Tobacco Use Status: Former Tobacco user Tobacco use type: Smokeless Tobacco e-Cigarette/Vaping Use: Never Used Second Hand Smoke Exposure: Yes Have you been hit, kicked, punched, or otherwise hurt by someone within the past year? If so, by whom?: No Are you DNR?: No Advance Directives: No Advance Directives Information Provided: Yes service: No Current occupational status: employed Cognitive needs: No Hearing needs: No Vision needs: No Meds Allergies Allergy/AdvReac Type Severity Reaction Status Date / Time No Known Allergies Allergy Verified 05/14/24 15:17 [No Known Allergies*] Exam Height,Weight and Vital Signs: Height 6 ft Weight 81.193 kg Assessment and Plan Assessment Anesthesia Assessment: Chart Reviewed Final Anesthetic Review History of Problems with Anesthesia: No Documented by User: Marie Alanis MD 05/27/24 07:48 PMFSH Past Medical History Medical History (Updated 04/23/24 @ 11:05 by Khushboo Burr MD) Tubulovillous adenoma of colon Carpal tunnel syndrome of left wrist Vitamin D deficiency Pure hypercholesterolemia Constipation Depression Anxiety Family History Family History Father No problems noted. Mother No problems noted. Family history of problems with anesthesia: No Surgical History Surgical History (Updated 05/25/24 @ 11:05 by Gillian Panchal RN) Hx of colonoscopy (~10/09/21) Social History Social History Housing: House Alcohol intake: current Alcohol intake frequency: does not drink Patient Tobacco Use Status: Former Tobacco user Tobacco use type: Smokeless Tobacco e-Cigarette/Vaping Use: Never Used Second Hand Smoke Exposure: Yes Have you been hit, kicked, punched, or otherwise hurt by someone within the past year? If so, by whom?: No Are you DNR?: No Advance Directives: No Advance Directives Information Provided: Yes service: No Current occupational status: employed Cognitive needs: No Hearing needs: No Vision needs: No Meds Allergies Allergy/AdvReac Type Severity Reaction Status Date / Time No Known Allergies Allergy Verified 05/14/24 15:17 [No Known Allergies*] Exam Airway Mallampati Class: II TM Dist: >3cm Neck ROM: Full Assessment and Plan Assessment Anesthesia Assessment: Anesthesia Plan Discussed Final Anesthetic Review Family History of Problems with Anesthesia: No NPO: Yes ASA Class: II Final Preanesthetic Review: No Changes in Pt Med Stat, Meds/Allgs Chart Reviewed, Consent Obtained/Reviewed and Anes Risks/Benef Reviewed Patient Risk: Low Procedure Risk: Low Anesthetic Plan Anesthetic Plan: TIVA Disposition: Standard PACU
[2024-05-27 07:24] VITALS: BP 130/83; PULSE 76; RESP 17; TEMP 36.4; O2SAT 96; BMI 23.7
[2024-05-27] MEDS: Lactated Ringers 1,000 ML 100 ML IVCONT (07:41)
--- NOTE | 2024-05-27 08:11 | P.HPSUR_ITS ---
Pre-Procedural Eval Section A - 24 Hr Update-Section A only Date of Service: 05/27/24 Section B - Complete if H&P > 30 days Chief Complaint: Benign neoplasm of colon, unspecified Relevant Family History (Specify if Yes): No Relevant Social History: None Present Medications: see Short Stay Collaborative assessment Medical History: Significant History (Tubulovillous adenoma of colon Carpal tunnel syndrome of left wrist Vitamin D deficiency Pure hypercholesterolemia Constipation Depression Anxiety) History of Previous Operations: Relevant previous surgery/procedure and date(s) (colonoscopy (~10/09/21)) Allergies: Allergies Allergy/AdvReac Type Severity Reaction Status Date / Time No Known Allergies Allergy Verified 05/14/24 15:17 [No Known Allergies*] Review of Systems Sugical H&P ROS: Negative: Constitution, Cardiovascular, Respiratory, Neur ological, Psychiatric, Hem-Onc, Allergic/Immunologic, Gastrointestinal, Genitourinary, Musculoskeletal, Integumentary, Endocrine and Eyes/Ears/Nose/Throat Exam Surgical H&P Exam: Normal: HEENT, Normal: Heart, Normal: Lungs, Normal: Extremities, Normal: Abdomen, Normal: Skin and Normal: Neurological Plan Diagnosis/Plan: Unchanged I have reviewed the history and physical and performed a pertinent physical examination on my patient. No changes have occurred unless specified. Time Spent With Patient Time: Total time managing care of this patient today ____ minutes.
--- NOTE | 2024-05-27 08:40 | HO.OPN-COLON ---
Colonoscopy Operative Note Operative Note Date of Service: 05/27/24 Narrative: Operative Information Procedure Description: Colonoscopy Indication: hx of colo polyps Anesthesia: MAC COLONOSCOPY Instrument: Olympus variable stiffness pediatric scope 190L Colonoscopy Monitoring: Vital signs and clinical assessment, continuous EKG monitoring, Pulse oximetry, Carbon Dioxide monitoring and blood pressure monitoring were done throughout the procedure. Colon withdrawal time was 16 minutes. Procedure: The patient was placed in the left lateral decubitis position and pre-procedure medications were administered. After a digital rectal examination of the ano-rectum, the video colonoscope was inserted into the rectum and advanced through the colon to the cecum/TI. The colonoscope was slowly withdrawn in a retrograde panoramic fashion and the colon mucosa was carefully examined including a retroflexed view of the rectum. Findings and interventions are described below. Procedure Difficulty: easy Findings: Terminal Ileum-normal Cecum:normal Ascending Colon: normal Transverse Colon -normal Descending Colon: x2 sessile polyps 6-8 mm removed with cold snare Sigmoid Colon: normal Rectum: Retroflexion with small internal hemorrhoids seen, grade I, 5-6 mm sessile polyp removed with cold forceps Anorectum - normal Intervention: cold snare, cold forceps Colon preparation: [place] Bowel Preparation Scale Right colon; 2 Transverse colon: 2 Left colon; 2 (0 = Unprepared colon segment with mucosa not seen due to solid stool that cannot be cleared. 1 = Portion of mucosa of the colon segment seen, but other areas of the colon segment not well seen due to staining, residual stool and/or opaque liquid. 2 = Minor amount of residual staining, small fragments of stool and/or opaque liquid, but mucosa of colon segment seen well. 3 = Entire mucosa of colon segment seen well with no residual staining, small fragments of stool or opaque liquid) Impression and Post Procedure Diagnosis: colon polyps x 3 internal hemorrhoids Plan: High fiber diet leaflet Avoid straining at stool, epsom salts and sitz bath, anusol supps or cream Repeat Colonoscopy in 2-3 years or earlier if clinically indicated Above findings were reviewed with the patient and relevant handouts were provided if indicated.
[2024-05-27 08:47] VITALS: BP 96/54; PULSE 67; RESP 14; TEMP 36.8; O2SAT 97
[2024-05-27 09:02] VITALS: BP 103/65; PULSE 58; RESP 16; TEMP 36.8; O2SAT 96
== END 2024-05-27 09:15 | disposition home or self-care (01) ==
PROVIDERS: PCP Internal Medicine; Visit Provider Internal Medicine Gastroenterology
PROC: 0DJD8ZZ Inspection of Lower Intestinal Tract, Via Natural or Artificial Opening Endoscopic (ICD-10-PCS; CPT 45378; principal; 2024-05-27 08:20)
DX: Z12.11 Encounter for screening for malignant neoplasm of colon (principal); Z86.0101 Personal history of adenomatous and serrated colon polyps; D12.4 Benign neoplasm of descending colon; K62.1 Rectal polyp; K64.0 First degree hemorrhoids; K59.00 Constipation, unspecified; E78.00 Pure hypercholesterolemia, unspecified; E55.9 Vitamin D deficiency, unspecified; F32.A Depression, unspecified; F41.9 Anxiety disorder, unspecified; L98.9 Disorder of the skin and subcutaneous tissue, unspecified; Z87.891 Personal history of nicotine dependence
CPT/HCPCS: 45385; 45380; 88305; J2704

== ENCOUNTER → 2024-05-27 07:06 | Outpatient (BNV) | payer BC, SELFPAY | PROVIDERS: PCP Internal Medicine; Visit Provider Internal Medicine Gastroenterology | DX: Z12.11 Encounter for screening for malignant neoplasm of colon (principal); Z86.0100 Personal history of colon polyps, unspecified; D12.4 Benign neoplasm of descending colon; K62.1 Rectal polyp; K64.0 First degree hemorrhoids | CPT/HCPCS: 45380; 45385 ==

== ENCOUNTER 2024-06-30 12:47 | Outpatient (REF) | payer BC, SELFPAY ==
--- NOTE | ~2024-06-30 | XR_ITS ---
CLINICAL HISTORY: M79.642 - Pain in left hand 4 view left hand Comparison: None Findings: Bones intact. No dislocations. No significant loss of joint space or osteophytes. No erosions. No radiopaque foreign body. IMPRESSION: 1. No acute findings This document has been electronically signed by: David Adame MD on 07/02/2024 09:02:13
== END 2024-06-30 12:48 | disposition home or self-care (01) ==
LOC: HO.HOSX 12:47
PROVIDERS: Visit Provider Orthopaedic Surgery
DX: M79.642 Pain in left hand (principal)
CPT/HCPCS: 73130

== ENCOUNTER 2024-06-30 14:48 | Outpatient (AMB) | payer BC, SELFPAY ==
[2024-06-30 15:15] VITALS: BMI 23.6
--- NOTE | 2024-06-30 15:15 | MHC.OFFVIS ---
Vital Signs 06/30/24 15:15 Height 6 ft Weight 174 lb BMI 23.6 Intake Visit Reasons: OV- L hand mass excision discussion Intake Note: 48 yr old male presents today for his follow up visit for a further evaluation of a painful nodule on his index finger. Patient reports he has been having this nodule near his 2nd MCP for many years and has been putting it off however he has pain when he accidentally bangs his finger. Last seen with Jose Carlos Church who advise patient to be seen with Dr Wise. Allergies No Known Allergies [No Known Allergies*] Allergy (Verified 06/30/24 15:20) HPI HPI OV- L hand mass excision discussion: Details: is a 48 year old right hand dominant man who presents to discuss a left index finger mass. He complains of a mass on his left index finger, which he says has been present for several years. He says 5-10 years, not sure . He says he has pain when he strikes this against a surface. He denies this changing in size [facility] Medical History (Updated 06/30/24 @ 15:39 by Markos Hilton) Tubulovillous adenoma of colon Carpal tunnel syndrome of left wrist Vitamin D deficiency Pure hypercholesterolemia Constipation Depression Anxiety Surgical History Hx of colonoscopy (~10/09/21) Family History Father No problems noted. Mother No problems noted. Social History (Updated 06/30/24 @ 15:20 by MILLI Cuellar) Housing: House Alcohol intake: current Alcohol intake frequency: does not drink Patient Tobacco Use Status: Former Tobacco user Tobacco use type: Smokeless Tobacco e-Cigarette/Vaping Use: Never Used Second Hand Smoke Exposure: Yes service: No Current occupational status: employed Current occupation: [employer]/ [employer] Cognitive needs: No Hearing needs: No Vision needs: No Review of Systems Const All systems reviewed & are unremarkable except as noted in HPI and below Physical Exam Vital Signs: BMI result Body Mass Index 23.6 Const General: cooperative, healthy appearing and no acute distress Orientation/consciousness: patient oriented x3 HEENT Head: Yes normocephalic and Yes atraumatic Eyes EOM: EOMs intact bilaterally Resp Effort & Inspection: normal respiratory effort and able to speak in complete sentences Cardio Jugular venous distension: no JVD Skin General skin exam: turgor normal Rashes: no rashes Neuro General: patient oriented x3 Extrem Other: Evaluation of Left Upper Extremity: The patient is alert, oriented, and in no acute distress Neuro: Median, Ulnar, Radial nerves motor and sensory intact and sensation is normal to the tips of all digits Vascular: Cap refill brisk ROM: He can make a fist and extend all his digits No locking or catching Skin: No lacerations or abrasions. General: No Ecchymosis. No Erythema or evidence of infection. There is a mass just proximal and radial to the 2nd MCP joint, measuring ~2-3mm in diameter. just beneath the skin. This is spherical in shape. It does not feel attached to muscle or tendon, likely in subcutaneous tissue or attached to skin Radiographs: 3 views of the left hand were taken and viewed by me today in clinic. They show no fractures, dislocations, significant arthritic changes, or bony abnormalities. Psych Appearance: grossly normal Affect: normal affect Attitude: cooperative Assessment & Plan Assessment & Plan (1) Mass of joint of left hand: Code(s): M25.842 - Other specified joint disorders, left hand Category: Medical Plan Assessment & Plan: 1. Left dorsal hand mass Measuring ~2-3mm in diameter I educated him about this condition I discussed operative and non-operative treatment options The patient would like to proceed with surgery The risks and benefits of operative treatment were discussed with the patient and the patient wishes to proceed with surgery. These risks include, but are not limited to risk of damage to blood vessels, nerves, tendons, infection, recurrence, incomplete relief of preoperative symptoms, persistent pain, possible need for further surgery and the risks associated with regional blocks and anesthesia. The plan is to take the patient to the operating room sometime in the next few weeks for the following procedures: 1. Left dorsal hand mass excision, under local All of the preoperative paperwork including the consent was reviewed today. All the patient's questions were answered. The patient understands that they will be contacted by our oral surgery technician soon to schedule this procedure He denies Diabetes, blood thinners, asthma, heart, lung, kidney issues Scribed for Halle Wise MD by Markos Hilton hospital medical assistant, on 06/30/24 at 3:40 PM, EST. Orders: Orders XR hand LT min 3V Today M79.642 - Pain in left hand Coding Level of Care Code Est Pt Level 4 (72690) Diagnoses Mass of joint of left hand M25.842
== END 2024-06-30 15:53 | disposition home or self-care (01) ==
LOC: HO.HOS 14:49
PROVIDERS: PCP Internal Medicine; Visit Provider Orthopaedic Surgery
DX: M25.842 Other specified joint disorders, left hand (principal)
CPT/HCPCS: 99214

== ENCOUNTER → 2024-06-30 14:51 | Outpatient (BNV) | payer BC, SELFPAY | PROVIDERS: Visit Provider Specialist | DX: M79.642 Pain in left hand (principal) | CPT/HCPCS: 73130 ==

== ENCOUNTER 2024-07-08 12:14 | Day surgery (SDC) | payer BC, SELFPAY ==
[2024-07-08 12:30] VITALS: BP 129/73; PULSE 76; RESP 16; TEMP 36.6; O2SAT 96; BMI 23.6
--- NOTE | 2024-07-08 12:48 | MHC.SHP ---
Pre-Procedural Eval Section A - 24 Hr Update-Section A only Date of Service: 07/08/24 The patient is an INPATIENT: No Changes since office visit: No Cold of Flu in the past 2 weeks, No New Medical Problems, No Changes in Medication and No Patient answered all questions The patient has been examined within 24 hours of the surgical procedure. The History & Physical has been completed within 30 days and I have reviewed it.: Yes Section B - Complete if H&P > 30 days Chief Complaint: Localized swelling, mass and lump, left upper limb Allergies: Allergies Allergy/AdvReac Type Severity Reaction Status Date / Time No Known Allergies Allergy Verified 06/30/24 15:20 [No Known Allergies*] Plan Diagnosis/Plan: Unchanged I have reviewed the history and physical and performed a pertinent physical examination on my patient. No changes have occurred unless specified. Time Spent With Patient Time: Total time managing care of this patient today ____ minutes.
--- NOTE | 2024-07-08 12:48 | W.PM.OPN ---
Operative Note Operative Note Date of Service: 07/08/24 Narrative: Operative Note Preop diagnosis: 1. Left dorsal hand mass, 1st webspace Postop diagnosis: same Procedure: 1. Left dorsal hand mass excision and biopsy Surgeon: Halle Wise MD Adjunct English Instructor: Ranjit GIFFORD Anesthesia: digital block using 1% lidocaine with epinephrine Findings: A yellow solid soft tissue mass measuring perhaps 4 mm in diameter was found in the subcutaneous tissues EBL: Less than 5 mL Tourniquet time: None Specimens: Left dorsal hand mass Complications: None Disposition: Brought to recovery room in stable condition Plan: Follow-up for 7-10 days for wound check and suture removal and to check pathology Indications: The patient is 48 years old, with left dorsal hand mass over the 1st dorsal compartment . The risks and benefits of operative treatment including but not limited to risk of damage to blood vessels, nerves, tendons, infection, persistent pain, persistent symptoms, recurrence or possible need for additional surgery were discussed with the patient and the patient wishes to proceed with surgery. Procedure: Once consent was obtained a digital block was performed in the preop area using a combination of 1% lidocaine with epinephrine. The patient was then brought back to the operating suite and placed on the operative table in supine position. The left upper extremity was prepped and draped in a standard surgical fashion. Once assured that we had a good block, I made a 1.2 cm longitudinal incision centered over the mass just proximal and radial to the 2nd metacarpal head of the left hand. The incision was made through the skin to the subcutaneous tissues using a 15. Blade. I then dissected into the subcutaneous tissues were I identified a yellow solid soft tissue mass measuring approximately 4 mm in diameter. It is possible that this is a small lipoma versus a fibroma. This was dissected free from the surrounding tissues and placed on the back table to be sent for histopathology. No further masses were appreciated. Once satisfied with our excision of the mass the wound was copiously irrigated with normal saline and hemostasis was obtained with a brief period of local pressure. The skin edges were reapproximated with some 5.0 nylon suture material and a sterile dressing was applied. The patient appears to have tolerated the procedure well and with no complications. All digits were well vascularized at the conclusion of the case.
[2024-07-08 15:10] VITALS: BP 118/69; PULSE 63; RESP 14; O2SAT 97
== END 2024-07-08 15:11 | disposition home or self-care (01) ==
PROVIDERS: PCP Internal Medicine; Visit Provider Orthopaedic Surgery
PROC: (CPT 26115; principal; 2024-07-08 14:00)
DX: D23.62 Other benign neoplasm of skin of left upper limb, including shoulder (principal); M79.642 Pain in left hand; M25.842 Other specified joint disorders, left hand; E55.9 Vitamin D deficiency, unspecified; E78.00 Pure hypercholesterolemia, unspecified; F32.A Depression, unspecified; Z87.891 Personal history of nicotine dependence
CPT/HCPCS: 26115; 88307; 88341; 88342; J0171; J2003

== ENCOUNTER → 2024-07-08 12:14 | Outpatient (BNV) | payer BC, SELFPAY | PROVIDERS: PCP Internal Medicine; Visit Provider Orthopaedic Surgery | DX: D23.62 Other benign neoplasm of skin of left upper limb, including shoulder (principal) | CPT/HCPCS: 26115 ==

== ENCOUNTER 2024-07-23 12:30 | Outpatient (AMB) | payer BC, SELFPAY ==
--- NOTE | 2024-07-23 12:54 | A.OFFVIS_ITS ---
Vital Signs 07/23/24 12:58 Height 6 ft 1 in Weight 170 lb BMI 22.4 Handedness Right Intake Visit Reasons: PO LT dorsal mass exc 07/08/24 AR Intake Note: 48 year old right hand dominant male presents today for his post operative visit s/p left dorsal hand mass excision and biopsy, DOS: 07/08/[address] Halle Wise. Patient denies any pain. States his numbness and tingling has resolved. Sutures removed and steri strips applied. Allergies No Known Allergies [No Known Allergies*] Allergy (Verified 07/23/24 12:59) HPI HPI PO LT dorsal mass exc 07/08/24 AR: Details: 48 year old right hand dominant male presents today for his post operative visit s/p left dorsal hand mass excision and biopsy, DOS: 07/08/[address] Halle Wise. Patient denies any pain. States his numbness and tingling has resolv ed. Sutures removed and steri strips applied. 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 Mother No problems noted. Social History Housing: House Alcohol intake: current Alcohol intake frequency: does not drink Patient Tobacco Use Status: Former Tobacco user Tobacco use type: Smokeless Tobacco e-Cigarette/Vaping Use: Never Used Second Hand Smoke Exposure: Yes service: No Current occupational status: employed Current occupation: [employer]/ [employer] hand Cognitive needs: No Hearing needs: No Vision needs: No Physical Exam Vital Signs: BMI result Body Mass Index 22.4 Assessment & Plan Assessment & Plan (1) Mass of joint of left hand: Code(s): M25.842 - Other specified joint disorders, left hand Category: Medical Plan History of Present Illness The patient is a 48 year old male presenting with a postoperative visit following the excision of a mass from his finger. The procedure involved the removal of the mass and subsequent closure with stitches, which have been recently removed. Since the removal, the patient has adhered to postoperative care instructions and reports no signs of infection, such as redness, swelling, or discharge. He denies any numbness or tingling in the affected finger and is able to make a fist. Post-surgery, the patient has not engaged in any activities that might stress the surgical site. His postoperative course has been uneventful with satisfactory progress reported. Review of Systems - Musculoskeletal: Denies numbness or tingling in the affected finger. - Skin: Denies redness, swelling, or infection at the surgical site. Systems reviewed and are negative except as per HPI and below Physical Exam - Musculoskeletal- Examination of the finger shows no signs of infection. No redness, no swelling. Surgical site is healing appropriately. No tenderness is noted upon examination, and the patient is able to make a fist without difficulty. Results Procedure Plan The patient is advised to continue adhering to postoperative restrictions to ensure proper healing following his finger mass excision. These include avoiding submersion of the hand in water for one more week and adhering to weight-lifting restrictions for two more weeks. A light dressing should be maintained when outdoors, with the option to leave the site open to air when at home. After four to five days, any remaining adhesive strips may be gently removed if they do not naturally detach. No additional follow-up has been scheduled, barring any signs of infection or complications. Patient was informed and verbally consented to the use of an ambient scribe for clinic note documentation during this visit. Discussion Notes During the postoperative visit, I discussed the current status of the patient's recovery following the excision of a mass from his finger. There were no signs of redness, swelling, or infection, and the stitches were reported to have been successfully removed without complication. I reiterated the importance of continuing current restrictions, including no water immersion for a week and lifting restrictions for two weeks, to avoid complications. The patient was educated on monitoring for infection signs and informed that any small remaining strips on the surgical site can be removed in five days if they have not fallen off naturally. The overall prognosis appears favorable, with no further follow- up required unless complications arise. Patient Instructions - Avoid submerging your hand in water for one more week. - Do not lift anything heavier than a cell phone with the affected hand for two more weeks. - Keep a light dressing on the surgical site when outside; you can leave it open to air at home. - Monitor the surgical site for signs of infection, such as redness or swelling, and contact us if anything changes. - After four to five days, you may remove the remaining adhesive strips if they do not come off naturally. - No need for a further follow-up unless complications occur. Coding Level of Care Code Global (38538) Diagnoses Mass of joint of left hand M25.842
[2024-07-23 12:58] VITALS: BMI 22.4
== END 2024-07-23 13:32 | disposition home or self-care (01) ==
LOC: HO.HOS 12:31
PROVIDERS: PCP Internal Medicine
DX: M25.842 Other specified joint disorders, left hand (principal)
CPT/HCPCS: 99024

== ENCOUNTER 2024-08-17 10:47 | Outpatient (AMB) | payer BC, SELFPAY ==
--- NOTE | 2024-08-17 10:48 | MHC.OFFVIS ---
Intake Visit Reasons: TH-Mass of joint of left hand Intake Note: presents today for a follow up visit via telephone call to discuss his Mass of joint of left hand. Allergies No Known Allergies [No Known Allergies*] Allergy (Verified 07/23/24 12:59) HPI HPI TH-Mass of joint of left hand: Details: I called to talk to him about the mass that we removed from the dorsal aspect of his left hand 1st webspace on 07/08/2024. 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 He reports that his wound is healed well and is flat with no signs of recurrence. 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 Mother No problems noted. Social History Housing: House Alcohol intake: current Alcohol intake frequency: does not drink Patient Tobacco Use Status: Former Tobacco user Tobacco use type: Smokeless Tobacco e-Cigarette/Vaping Use: Never Used Second Hand Smoke Exposure: Yes service: No Current occupational status: employed Current occupation: [employer]/ [employer] hand Cognitive needs: No Hearing needs: No Vision needs: No Review of Systems Const All systems reviewed & are unremarkable except as noted in HPI and below Physical Exam Const General: no acute distress and alert Orientation/consciousness: patient oriented x3 Neuro General: patient oriented x3 Extrem Other: The patient reports that the wound is healed well and that there is no evidence of mass recurrence. Pathology report from 07/08/24 Diagnosis Soft tissue, left dorsal hand mass, excision: Eccrine spiradenoma. Comment: This benign lesion is within microns of the margins. Any clinically residual lesion should be excised Psych Appearance: grossly normal Affect: normal affect Attitude: cooperative Telehealth Telehealth Telehealth Platform: Telephone Location of provider rendering services: practice address Location of patient: address on file Patient Identification confirmed using: Name, : Yes Telehealth method: voice only Patient verbally consented to treatment: Yes Patient verbally consented to billing insurance company: Yes Assessment & Plan Assessment & Plan (1) Eccrine spiradenoma: Code(s): D23.9 - Other benign neoplasm of skin, unspecified Category: Medical Plan Assessment & Plan: 1. Left dorsal hand mass, Eccrine Spiradenoma, S/P excision DOS: 07/08/24 I spoke with over the phone and reviewed his pathology results with him He understands that this mass was benign, but is subject to malignant transformation. I explained that if he does experience a recurrence of the mass, that he should seek an appointment with a hand surgeon in a timely manner. Scribed for Halle Wise MD by Markos Hilton, certified medical coding specialist, on 10:50 AM at 08/17/24, EST. Coding Level of Care Code Tele Est Pt Level 3 (55615) Diagnoses Eccrine spiradenoma D23.9
== END 2024-08-17 11:01 | disposition home or self-care (01) ==
LOC: HO.HOS 10:47
PROVIDERS: PCP Internal Medicine; Visit Provider Orthopaedic Surgery
DX: D23.9 Other benign neoplasm of skin, unspecified (principal)
CPT/HCPCS: 99024

== ENCOUNTER 2024-08-23 13:56 | Outpatient (AMB) | payer BC, SELFPAY ==
--- NOTE | 2024-08-23 13:57 | MHC.OFFVIS ---
Intake Visit Reasons: s/p colo Intake Note: Est pt for s/p colo FUV. CC; Pt denies any GI sx or concerns at this time. 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 Hand Required: No Accompanied by: Self / Same As Patient Allergies No Known Allergies (No Known Allergies*) Allergy (Verified 08/23/24 13:57) HPI HPI s/p colo: Details: 48 yr old m here for f/u RECAP He is overdue on colonoscopy, he had index colonoscopy 2021 with several polyps noted, some were large and were tubulovillous grandfather had pancreatic cancer no FH of CRC [place] 05/25: x 3 sessile polyps removed TA and HP polyps INTERIM: bowel habits are normal no blood no abdominal pain appetite is good A/P: 1/ Large polyps on index colo--follow up with small polyps PLAN: 1/ colonoscopy in 2 yrs [facility] Medical History Tubulovillous adenoma of colon Carpal tunnel syndrome of left wrist Vitamin D deficiency Pure hypercholesterolemia Constipation Depression Anxiety Surgical History Neurofibroma Hx of colonoscopy (~10/09/21) Family History Father No problems noted. Mother No problems noted. Social History Housing: House Alcohol intake: current Alcohol intake frequency: does not drink Patient Tobacco Use Status: Former Tobacco user Tobacco use type: Smokeless Tobacco e-Cigarette/Vaping Use: Never Used Second Hand Smoke Exposure: Yes service: No Current occupational status: employed Current occupation: [employer]/ [employer] hand Cognitive needs: No Hearing needs: No Vision needs: No Telehealth Telehealth Telehealth Platform: Telephone Location of provider rendering services: practice address Location of patient: address on file Patient Identification confirmed using: Name, : Yes Telehealth method: voice only Patient verbally consented to treatment: Yes Patient verbally consented to billing insurance company: Yes Patient informed of any privacy concerns related to visit: Yes Minutes spent on Phone/Video with Pt.: 4 Assessment & Plan Assessment & Plan (1) Tubulovillous adenoma of colon: Code(s): D12.6 - Benign neoplasm of colon, unspecified Category: Medical Plan: as above Coding Level of Care Code Tele Est Pt Level 2 (69978) Diagnoses Tubulovillous adenoma of colon D12.6
== END 2024-08-23 15:52 | disposition home or self-care (01) ==
LOC: HO.HGI 13:56
PROVIDERS: PCP Internal Medicine; Visit Provider Internal Medicine Gastroenterology
DX: D12.6 Benign neoplasm of colon, unspecified (principal)
CPT/HCPCS: 99212

== ENCOUNTER 2024-08-30 15:48 | Outpatient (AMB) | payer BC, SELFPAY ==
[2024-08-30 15:49] VITALS: BP 122/86; PULSE 87; O2SAT 97; BMI 21.9
--- NOTE | 2024-08-30 15:49 | MHC.PC.OV ---
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 Grading Required: No Accompanied by: Self / Same As Patient Allergies No Known Allergies (No Known Allergies*) Allergy (Verified 08/30/24 16:18) Medication List - Last Reconciled 08/30/24 by PAULA Alvarez citalopram 10 mg PO DAILY 90 days Tobacco use date assessed: 08/30/24 Dental Screening Dental Screen Date: 08/30/24 Did you have a dental visit in the last 12 months?: No Did you have a dental problem in the last 6 months where you did not have access to dental care?: No Was dental information given to patient?: No HPI 6 month f/u HPI Details The patient is a 48-year-old male presenting for a follow-up visit to address hyperlipidemia and review recent colonoscopy findings. The patient reports an increase in cholesterol levels since the last assessment in March 2024, with LDL cholesterol rising from 146 mg/dL to 168 mg/dL. He acknowledges a diet high in cholesterol, primarily consisting of junk food, and has not been on any medication for hyperlipidemia. The patient has been advised to modify his diet to manage cholesterol levels. The patient underwent a colonoscopy a few months ago, which revealed a couple of small polyps. He was informed that he does not need another colonoscopy for two years. The patient reports nocturia, waking up one to two times per night to urinate, which may be related to fluid intake close to bedtime. He denies any other urinary symptoms. Reports doing Colonoscopy few months ago, she found few polyps, plans repeat in 2 years. 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 Mother No problems noted. Social History Housing: House Alcohol intake: current Alcohol intake frequency: does not drink Patient Tobacco Use Status: Former Tobacco user Tobacco use type: Smokeless Tobacco e-Cigarette/Vaping Use: Never Used Second Hand Smoke Exposure: Yes service: No Current occupational status: employed Current occupation: [employer]/ [employer] Cognitive needs: No Hearing needs: No Vision needs: No Questionnaire PHQ-9 Over the last 2 weeks, how often have you been bothered by any of the following problems? 1. Little interest or pleasure in doing things: not at all 2. Feeling down, depressed, or hopeless: not at all 3. Trouble falling or staying asleep, or sleeping too much: several days 4. Feeling tired or having little energy: several days 5. Poor appetite or overeating: not at all 6. Feeling bad about yourself - or that you are a failure or have let yourself or your family down: not at all 7. Trouble concentrating on things, such as reading the newspaper or watching television: not at all 8. Moving or speaking so slowly that other people could have noticed. Or the opposite - being so fidgety or restless that you have been moving around a lot more than usual: not at all 9. Thoughts that you would be better off or of hurting yourself in some way: not at all Total score: 2 Depression Screening Interpretation: Negative Depression Screening Done: Yes 06880 - PHQ-9 Billing: Yes Source: Developed by Drs. Domenic Andrews, Anju Myers, Joce Echavarria and colleagues, with an educational eros from [employer]. Thrive Questionnaire Date Thrive assessed: 08/30/24 I am a: Patient What is your living situation today?: I have a steady place to live Within the past 12 months, did the food you bought not last and you didn't have the money to get more?: Never true Within the past 12 months, did you worry whether your food would run out before you got money to buy more?: Never true Do you have trouble paying for medicines?: No Do you have trouble getting transportation to medical appointments?: No Do you have trouble paying your heating and electricity bill?: No Do you have trouble taking care of your child, family member or friend?: No Do you have trouble with day-to-day activities such as bathing, preparing meals, shopping, managing finances, etc.?: No Are you currently unemployed and looking for a job?: No Are you interested in more education?: No Please select the resources that you would like help with: None Currently or been in a relationship where the following occur: No concerns reported THRIVE Score: 0 AUDIT C Alcohol Use Questionnaire (AUDIT-C) 1. How often do you have a drink containing alcohol?: 2-3 times a week 2. How many drinks containing alcohol do you have on a typical day when you are drinking?: 1 or 2 3. How often do you have six or more drinks on one occasion?: Never Total Score: 3 ANA-7 AMB Questionnaire ANA-7 Date ANA - 7 assessed: 08/30/24 Feeling nervous, anxious, or on edge: 0 = Not at all Not being able to stop or control worryin = Not at all Worrying too much about different things: 0 = Not at all Trouble relaxin = Not at all Being so restless that it is hard to sit still: 0 = Not at all Becoming easily annoyed or irritable: 0 = Not at all Feeling afraid as if something awful might happen: 0 = Not at all Total ANA-7 score (0-4 normal; 5-9 mild; 10-14 moderate; 15-21 severe): 0 Source: Developed by Drs. Domenic Andrews, Anju Myers, Joce Echavarria and colleagues, with an educational eros from [employer]. ANA-7 Assessment Billing ANA-7 Assessment Tool: ANA-7 Assessment 44553 Review of Systems Const Denies headache(s) Eyes Denies loss of vision ENT Denies vertigo, Denies dizziness, Denies headache(s) and Denies sore throat Card Denies chest pain, Denies leg edema and Denies lightheadedness Resp Denies cough, Denies hemoptysis and Denies wheezing GI Denies abdominal pain, Denies melena, Denies constipation, Denies diarrhea and Denies vomiting Denies dysuria, Reports nocturia (2 times a night-reports drinking close to bedtime), Denies urinary frequency and Denies urinary urgency Musc Denies arthralgias, Denies joint swelling, Denies numbness and Denies tingling Neuro Denies Abnormal speech present, Denies behavioral changes, Denies vertigo, Denies dizziness, Denies headache(s), Denies loss of vision, Denies memory loss, Denies numbness and Denies tingling Psych Denies anxiety, Denies behavioral changes, Denies depression, Denies memory loss and Denies panic attacks Hira/Lymph Denies easy bleeding and Denies easy bruising Aller/Immun Denies wheezing Physical exam (Primary Care) Vital Signs: Last Vital Signs Pulse 87 08/30/24 15:49 BP 122/86 08/30/24 15:49 Pulse Ox 97 08/30/24 15:49 Oxygen Delivery Method Room Air 08/30/24 15:49 BMI result Body Mass Index 21.9 Tobacco/Smoking Status: Tobacco use Status Tobacco use date assessed 08/30/24 08/30/24 15:54 Patient Tobacco Use Status Former Tobacco user 08/30/24 15:54 Tobacco use type Smokeless Tobacco 08/30/24 15:54 e-Cigarette/Vaping Use Never Used 08/30/24 15:54 PHQ-9: PHQ-9 Score PHQ-9: Total score 2 08/30/24 16:26 Depression Screening Interpretation: Negative Thrive Assessment: Date of Thrive Assessment Date Thrive assessed 08/30/24 08/30/24 15:54 Currently or been in a relationship where the following occur: No concerns reported Const General: healthy appearing, no acute distress, alert and awake Nutritional Appearance: well nourished Orientation/consciousness: oriented to person, oriented to place and oriented to time HENMT Ears: TM's normal bilaterally General nose exam: Normal nasal mucous membranes and turbinates present Eyes Conjunctivae: conjunctivae normal Sclerae: sclerae normal Pupils: Equal, round and reactive pupils present Neck Neck: Yes no lymphadenopathy and Yes no JVD Thyroid: Thyroid normal Carotids: no bruits Resp Effort & Inspection: normal respiratory effort and not tachypneic Auscultation: no crackles, no rales, no rhonchi and no wheezes Cardio Rate: regular rate Rhythm: regular rhythm Heart sounds: no murmurs and normal S1 and S2 GI Palpation (GI): Soft to palpation, nontender, no hepatomegaly and no splenomegaly Auscultation: normal bowel sounds Skin General skin exam: no rashes or lesions noted and dry skin Neuro General: oriented to person, oriented to place and oriented to time Cranial nerves: Yes Equal, round and reactive pupils present Speech: No Abnormal speech present Gait exam (Neuro): Normal gait present Motor exam (neuro): no tremor noted Extrem Right upper extremity: full ROM Left upper extremity: full ROM Right lower extremity: full ROM; no edema Left lower extremity: full ROM; no edema Psych Mental Status: mental status grossly normal Speech and movement: Normal speech and movement present Affect: normal affect Attitude: cooperative Thought process: Normal thought process present Results Reviewed Results Reviewed: Laboratory Tests 03/06/24 03/06/24 09:09 09:14 WBC 6.0 RBC 5.16 Hgb 14.6 Hct 42.4 MCV 82.2 MCH 28.3 MCHC 34.4 RDW 12.4 Plt Count 153 L MPV 9.4 Immature Gran % (Auto) 0.3 Sodium 142 Potassium 4.3 Chloride 107 Carbon Dioxide 27 Anion Gap 12 BUN 12 Creatinine 0.78 Estimated GFR > 60 Fasting Glucose 101 H Estimat Average Glucose 97 Hemoglobin A1c % 5.0 Calcium 9.4 D Total Bilirubin 0.9 AST 20 ALT 16 Alkaline Phosphatase 51 Total Protein 6.9 Albumin 4.4 Triglycerides 87 Cholesterol 232 H LDL Cholesterol, Calc 168 H HDL Cholesterol 47 PSA Screen 0.32 25-OH Vitamin D Total 30.9 TSH 1.36 Urine Color Yellow Urine Appearance Clear Urine pH 6.0 Ur Specific [place] 1.020 Urine Protein Negative Urine Glucose (UA) Negative Urine Ketones 15 Urine Blood Negative Urine Nitrite Negative Ur Leukocyte Esterase Negative Coding Level of Care Code Est Pt Level 3 (06952) Diagnoses Episode of recurrent major depressive disorder, unspecified depression episode severity F33.9 Depression Type: major depressive disorder Major depression recurrence: recurrent Active/Remission status: currently active Major depression episode severity: unspecified Pure hypercholesterolemia E78.00 Vitamin D deficiency E55.9 Constipation, unspecified constipation type K59.00 Constipation type: unspecified constipation type Tubulovillous adenoma D36.9 Anxiety F41.9 Additional Codes PHQ-9 - 10478 - PHQ-9 Billing: Yes ([id number]) ANA-7 Assessment Billing - ANA-7 Assessment Tool: ANA-7 Assessment 70159 ([id number]) Time Spent (min) 35 Assessment & Plan Assessment & Plan (1) Depression: Code(s): F32.A - Depression, unspecified Category: Medical Qualifiers: Depression Type: major depressive disorder Major depression recurrence: recurrent Active/Remission status: currently active Major depression episode severity: unspecified Qualified Code(s): F33.9 - Major depressive disorder, recurrent, unspecified Plan: Encouraged CBT Continue citalopram 10 mg daily Follow up psychology as scheduled (2) Pure hypercholesterolemia: Code(s): E78.00 - Pure hypercholesterolemia, unspecified Category: Medical Plan: The patient total cholesterol 232, LDL 168, HDL 47, 2024 Cautioned patient about his increase cholesterol levels from prior studies. Explained to the patient that if he is unable to decrease his current levels he might have to be placed on medication Discussed lifestyle modifications including dietary changes and physical activity (3) Vitamin D deficiency: Code(s): E55.9 - Vitamin D deficiency, unspecified Category: Medical Plan: Vitamin-D 30.9 Continue vitamin-D supplements OTC (4) Constipation: Comment: consistent bowel regimen- HFD Code(s): K59.00 - Constipation, unspecified Category: Medical Qualifiers: Constipation type: unspecified constipation type Qualified Code(s): K59.00 - Constipation, unspecified Plan: Reinforced fluids hydration and dietary fiber (5) Tubulovillous adenoma: Comment: Ascending Colon: laterally spreading granular polypoid lesion noted- Andressa IIa measuring about 2-3 cm. This was lifted with ERBE jet and then removed with hot snare. Small amount of residual tissue was removed with biopsy forceps and then the base was treated with 30 W of APC. 4 clips were applied with closure of defect and then hemospray applied Code(s): D36.9 - Benign neoplasm, unspecified site Category: Medical Plan: Colonoscopy few months ago, she found few polyps, plans repeat in 2 years. (6) Anxiety: Code(s): F41.9 - Anxiety disorder, unspecified Category: Medical Plan: Encouraged CBT Continue citalopram 10 mg daily Denies SI/HI Plan Follow up in six-month Orders: Orders Lipid Panel 6 Months F41.9 - Anxiety disorder, unspecified, F33.9 - Major depressive disorder, recurrent, unspecified, E78.00 - Pure hypercholesterolemia, unspecified, E55.9 - Vitamin D deficiency, unspecified, K59.00 - Constipation, unspecified, Z00.00 - Encounter for general adult medical examination without abnormal findings TSH reflex Free T4 6 Months F41.9 - Anxiety disorder, unspecified, F33.9 - Major depressive disorder, recurrent, unspecified, E78.00 - Pure hypercholesterolemia, unspecified, E55.9 - Vitamin D deficiency, unspecified, K59.00 - Constipation, unspecified, Z00.00 - Encounter for general adult medical examination without abnormal findings UA CC w/rflx Micro + Cult 6 Months F41.9 - Anxiety disorder, unspecified, F33.9 - Major depressive disorder, recurrent, unspecified, E78.00 - Pure hypercholesterolemia, unspecified, E55.9 - Vitamin D deficiency, unspecified, K59.00 - Constipation, unspecified, Z00.00 - Encounter for general adult medical examination without abnormal findings Hemoglobin A1c 6 Months F41.9 - Anxiety disorder, unspecified, F33.9 - Major depressive disorder, recurrent, unspecified, E78.00 - Pure hypercholesterolemia, unspecified, E55.9 - Vitamin D deficiency, unspecified, K59.00 - Constipation, unspecified, Z00.00 - Encounter for general adult medical examination without abnormal findings Complete Blood Count Auto Diff 6 Months F41.9 - Anxiety disorder, unspecified, F33.9 - Major depressive disorder, recurrent, unspecified, E78.00 - Pure hypercholesterolemia, unspecified, E55.9 - Vitamin D deficiency, unspecified, K59.00 - Constipation, unspecified, Z00.00 - Encounter for general adult medical examination without abnormal findings Comprehensive [place]. Panel Fast 6 Months F41.9 - Anxiety disorder, unspecified, F33.9 - Major depressive disorder, recurrent, unspecified, E78.00 - Pure hypercholesterolemia, unspecified, E55.9 - Vitamin D deficiency, unspecified, K59.00 - Constipation, unspecified, Z00.00 - Encounter for general adult medical examination without abnormal findings Vitamin D 25-OH Total 6 Months F41.9 - Anxiety disorder, unspecified, F33.9 - Major depressive disorder, recurrent, unspecified, E78.00 - Pure hypercholesterolemia, unspecified, E55.9 - Vitamin D deficiency, unspecified, K59.00 - Constipation, unspecified, Z00.00 - Encounter for general adult medical examination without abnormal findings
== END 2024-08-30 16:36 | disposition home or self-care (01) ==
LOC: HO.HMCH 15:48
PROVIDERS: PCP Internal Medicine
DX: F33.9 Major depressive disorder, recurrent, unspecified (principal); E78.00 Pure hypercholesterolemia, unspecified; E55.9 Vitamin D deficiency, unspecified; K59.00 Constipation, unspecified; D36.9 Benign neoplasm, unspecified site; F41.9 Anxiety disorder, unspecified

== ENCOUNTER → 2024-08-30 15:48 | Outpatient (BNVA) | payer BC, SELFPAY | PROVIDERS: PCP Internal Medicine | DX: R30.0 Dysuria (principal); E78.5 Hyperlipidemia, unspecified; F33.9 Major depressive disorder, recurrent, unspecified; E78.00 Pure hypercholesterolemia, unspecified; E55.9 Vitamin D deficiency, unspecified; K59.00 Constipation, unspecified; D36.9 Benign neoplasm, unspecified site; F41.9 Anxiety disorder, unspecified | CPT/HCPCS: 96127 ==

== ENCOUNTER 2025-02-12 08:24 | Outpatient (REF) | payer BC, SELFPAY ==
--- OUTSIDE RECORDS SUMMARY | 2025-02-12 08:27 | XMS_ITS | Clinical Summary ---
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 Active Immunizations Immunization Administration Dates Next Due Tdap 10/19/2018 Social History Tobacco Use Types Packs/Day Years Used Date Smoking Tobacco: Never Smokeless Tobacco: Never Alcohol Use Standard Drinks/Week Comments Yes 2 (1 standard drink = 0.6 oz pur e alcohol) Education Answer Date Recorded Are you interested in more education? Not on scot e 06/28/2022 Are you concerned about learning? Not on file 06/28/2022 No 06/28/2022 No 06/28/2022 Digital Access Answer Date Recorded No 07/27/2022 No 07/27/2022 No 07/27/2022 Reliable internet access at home? Not on file 07/27/2022 Device with a working camera? Not on file Sex and Gender Information Value Date Recorded Sex Assigned at Not on file Legal Sex Male 12:28 PM EDT Gender Identity Not on file Sexual Orientation Not on file Last Filed Vital Signs Vital Sign Reading Time Taken Comments Blood Pressure 148/92 10/19/2018 1:03 PM EDT Pulse 68 10/19/2018 1:03 PM EDT Temperature 37.1 C (98.7 F) 10/19/2018 1:03 PM EDT Respiratory Rate - - Oxygen Saturation 98% 10/19/2018 1:03 PM EDT Inhaled Oxygen Concentration - - Weight 74.8 kg (164 lb 12.8 oz) 10/19/2018 1:03 PM EDT Height - - Body Mass Index - - Plan of Treatment Health Maintenance Due Date Last Done Comments LIPID PANEL 1975 DEPRESSION SCREENING 1987 HEPATITIS C SCREENING 09/14/1993 HIV ONE-TIME SCREENING (18-6 5 YEARS) 09/14/1993 COLOGUARD 09/14/2020 COLONOSCOPY 09/14/2020 COLORECTAL CANCER SCREENING 09/14/2020 FIT TEST 09/14/2020 FOBT 09/14/2020 SIGMOIDOSCOPY 09/14/2020 VIRTUAL COLONOSCOPY 09/14/2020 INFLUENZA VACCINE (#1) 2024 7, 12/19/2014 COVID-19 VACCINE (3 - 2024-2 6 season) 2024 08/26/2020, 07/29/2020 Adult Td,Tdap Booster 10/19/2028 10/19/2018 SMOKING STATUS SCREENING (On ce After 26 Yrs) Completed 10/19/2018 HEPATITIS A VACCINES Aged Out No long er eligible based on patient's age to complete this topic HIB VACCINES Aged Out No longer eligi ble based on patient's age to complete this topic MENINGOCOCCAL VACCINES (ACWY) Aged Out No longer eligible based on patient's age to complete this topic MENINGOCOCCAL VACCINES (B) Aged Out N o longer eligible based on patient's age to complete this topic PNEUMOCOCCAL VACCINES (0-49 years) Aged Out No longer eligible b ased on patient's age to complete this topic Medical Devices Not on file Insurance [facility] [place] [address] [place] [address] [place] [address] [place] [address] [place] [address] [place] [address] [place] [address] [place] [address] [place] [address] [place] [address] [place] [address] [place] [address] [place] [address] [place] [address] PPO EPO [facility] PPO EPO [employer] Care Teams 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 It is not the complete legal health record.[facility]
[2025-02-12 09:01] LABS: MANUAL DIFF FLAG NO
[2025-02-12 10:16] LABS: Hematocrit 41.8 % (42.0-52.0); Hemoglobin 14.2 g/dl (14.0-18.0); Imm Gran Abs Auto 0.01 X10*3/uL (0.00-0.03); Imm Gran Pct Auto 0.2 % (0.0-0.4); Lymphocytes Absolute Auto 3.2 X10*3/uL (1.2-4.9); Mean Corpuscular HGB Conc 34.0 g/dl (31.0-36.0); Mean Corpuscular Hemoglobin 28.7 pg (27.0-33.0); Mean Corpuscular Volume 84.4 fL (80.0-98.0); NRBC Abs Auto 0.000 X10*3/uL (0.0-0.012); NRBC Pct Auto 0.0 /100WBC (0.0-0.2); Platelet Count 149 X10*3/uL (160-400); Red Blood Count 4.95 X10*6/uL (4.60-5.80); White Blood Count 6.0 X10*3/uL (4.8-10.8)
[2025-02-12 11:06] LABS: Alanine Aminotransferase 14 U/L (0-40); Albumin Level 4.4 g/dL (3.5-5.0); Alkaline Phosphatase 51 U/L (39-117); Anion Gap 11 (12-20); Aspartate Amino Transferase 20 U/L (5-37); Blood Urea Nitrogen 11 mg/dL (9-16); Calcium 9.2 mg/dL (8.4-10.2); Carbon Dioxide 29 mmol/L (22-29); Chloride 106 mmol/L (96-108); Cholesterol 207 mg/dL (<200); Estimated Glomerular Filt Rate > 60; HDL Cholesterol 50 mg/dL (>40); Potassium 4.4 mmol/L (3.3-5.1); Sodium 142 mmol/L (135-145); Total Protein 6.5 g/dL (6.5-8.0); Triglycerides 96 mg/dL (<150)
[2025-02-12 11:24] LABS: Appearance Urine Clear; Glucose Urine UA Negative (Negative); PH 8.0 (5.0-9.0); Specific Gravity - Urine 1.020 (1.005-1.025)
== END 2025-02-12 08:25 | disposition home or self-care (01) ==
LOC: HO.LAB 08:24
PROVIDERS: PCP Internal Medicine
DX: Z00.00 Encounter for general adult medical examination without abnormal findings (principal); F41.9 Anxiety disorder, unspecified; F33.9 Major depressive disorder, recurrent, unspecified; E78.00 Pure hypercholesterolemia, unspecified; E55.9 Vitamin D deficiency, unspecified; K59.00 Constipation, unspecified; Z13.1 Encounter for screening for diabetes mellitus
CPT/HCPCS: 36415; 80053; 80061; 81003; 82306; 83036; 84443; 85025

== ENCOUNTER 2025-02-15 15:48 | Outpatient (AMB) | payer BC, SELFPAY ==
[2025-02-15 16:01] VITALS: BP 100/62; PULSE 86; RESP 18; O2SAT 97; BMI 22.2
--- NOTE | 2025-02-15 16:01 | MHC.PC.OV ---
Vital Signs 02/15/25 16:01 Height 6 ft 1 in Weight 168 lb BMI 22.2 BP 100/62 Blood Pressure Location Lt brachial Position Sitting Respiration 18 Pulse 86 Pulse Source Pulse Oximeter Temp Source Temporal Artery Scan Pulse Oximetry (%) 97 Oxygen Delivery Method Room Air Intake Visit Reasons: Annual Exam Strategy Director Required: No Accompanied by: Self / Same As Patient Allergies No Known Allergies (No Known Allergies*) Allergy (Verified 02/15/25 16:41) Medication List - Last Reconciled 02/15/25 by Kaden Rinaldi MD citalopram 10 mg PO DAILY 90 days Tobacco use date assessed: 02/15/25 Dental Screening Dental Screen Date: 02/15/25 Did you have a dental visit in the last 12 months?: Yes Did you have a dental problem in the last 6 months where you did not have access to dental care?: No Was dental information given to patient?: Patient has dentist HPI Annual Exam HPI Details Patient comes in today for his annual physical examination States that he feels okay He denies any headaches or dizziness Denies any chest pains, no shortness of breath No nausea/vomiting, no abdominal pain No change in bowel habits noted He denies any dysuria but has noticed increasing urinary frequency in the middle of the night for a while now - states that he has to get up to use the bathroom now on average at least 3 times a night He had his follow-up labs done a few days ago - to discuss his results He had his initial screening colonoscopy done back in 2021 and at that time was advised to get repeat colonoscopy in 3-4 months but patient states that this never happened and he finally had his repeat colonoscopy done again earlier this year on 05/27/2024 He had 3 polyps removed that came out as tubular adenomas on pathology and he was recommended to undergo repeat colonoscopy again in 2 to 3 years [facility] Medical History Tubulovillous adenoma of colon Carpal tunnel syndrome of left wrist Vitamin D deficiency Pure hypercholesterolemia Constipation Depression Anxiety Surgical History Neurofibroma Hx of colonoscopy (~10/09/21) Family History Father No problems noted. Mother No problems noted. Social History Housing: House Alcohol intake: current Alcohol intake frequency: does not drink Patient Tobacco Use Status: Former Tobacco user Tobacco use type: Smokeless Tobacco e-Cigarette/Vaping Use: Never Used Second Hand Smoke Exposure: Yes service: No Current occupational status: employed Current occupation: [employer]/ [employer] Cognitive needs: No Hearing needs: No Vision needs: No Questionnaire PHQ-9 Over the last 2 weeks, how often have you been bothered by any of the following problems? Depression Screening Interpretation: Negative Depression Screening Done: Yes Source: Developed by Drs. Domenic Andrews, Anju Myers, Joce Echavarria and colleagues, with an educational eros from [employer]. Thrive Questionnaire Date Thrive assessed: 02/15/25 I am a: Patient What is your living situation today?: I have a steady place to live Within the past 12 months, did the food you bought not last and you didn't have the money to get more?: Never true Within the past 12 months, did you worry whether your food would run out before you got money to buy more?: Never true Do you have trouble paying for medicines?: No Do you have trouble getting transportation to medical appointments?: No Do you have trouble paying your heating and electricity bill?: No Do you have trouble taking care of your child, family member or friend?: No Do you have trouble with day-to-day activities such as bathing, preparing meals, shopping, managing finances, etc.?: No Are you currently unemployed and looking for a job?: No Are you interested in more education?: No Please select the resources that you would like help with: None Currently or been in a relationship where the following occur: No concerns reported THRIVE Score: 0 ANA-7 AMB Questionnaire ANA-7 Date ANA - 7 assessed: 08/30/24 Source: Developed by Drs. Domenic Andrews, Anju Myers, Joce Echavarria and colleagues, with an educational eros from [employer]. Review of Systems Const Denies chills, Denies fatigue, Denies fever(s), Denies headache(s), Denies malaise and Denies weakness Eyes Denies blurry vision, Denies change in vision, Denies irritation and Denies itchy eyes ENT Denies dysphagia, Denies dizziness, Denies otalgia, Denies headache(s), Denies nasal congestion, Denies neck pain, Denies odynophagia and Denies sore throat Card Denies rapid heart rate, Denies irregular heart rhythm, Denies palpitations and Denies dyspnea Resp Denies chest congestion, Denies cough, Denies dyspnea and Denies wheezing GI Denies abdominal pain, Denies bloating, Denies constipation, Denies dysphagia, Denies heartburn, Denies diarrhea, Denies nausea, Denies odynophagia and Denies vomiting Denies hematuria, Denies difficulty urinating, Denies dysuria, Reports nocturia (increasing lately), Denies urinary frequency and Denies urinary urgency Musc Denies back pain, Denies arthralgias, Denies joint swelling, Denies muscle weakness and Denies neck pain Skin/Breast Denies change in pigmentation, Denies lesions, Denies rash and Denies unusual bruising Neuro Denies dizziness, Denies headache(s), Denies paresthesias and Denies weakness Endo Denies fatigue and Denies palpitations Aller/Immun Denies itchy eyes and Denies wheezing Physical exam (Primary Care) Vital Signs: Last Vital Signs Pulse 86 02/15/25 16:01 Resp 18 02/15/25 16:01 BP 100/62 02/15/25 16:01 Pulse Ox 97 02/15/25 16:01 Oxygen Delivery Method Room Air 02/15/25 16:01 BMI result Body Mass Index 22.2 Tobacco/Smoking Status: Tobacco use Status Tobacco use date assessed 02/15/25 02/15/25 16:06 Patient Tobacco Use Status Former Tobacco user 02/15/25 16:06 Tobacco use type Smokeless Tobacco 02/15/25 16:06 e-Cigarette/Vaping Use Never Used 02/15/25 16:06 Depression Screening Interpretation: Negative Thrive Assessment: Date of Thrive Assessment Date Thrive assessed 02/15/25 02/15/25 16:06 Currently or been in a relationship where the following occur: No concerns reported Const General: no acute distress, alert and awake Orientation/consciousness: patient oriented x3 HENMT Head: Yes normocephalic and Yes atraumatic Ears: external ears normal, TM's normal bilaterally and EAC's normal General nose exam: No nasal discharge present Face and sinus: Yes normal facial exam and Yes sinuses nontender Teeth and gingiva: dentition normal Throat: Yes posterior oropharynx normal and Yes tonsils normal (no TP congestion) Eyes Eyelids: Yes eyelids normal Conjunctivae: conjunctivae normal Pupils: Equal, round and reactive pupils present EOM: EOMs intact bilaterally Neck Neck: Yes no lymphadenopathy and Yes supple Thyroid: Thyroid normal Resp Auscultation: clear to auscultation bilaterally, no rales and no wheezes Cardio Rate: regular rate Rhythm: regular rhythm Heart sounds: no murmurs GI Palpation (GI): Soft to palpation, nontender and No hepatosplenomegaly present Auscultation: normal bowel sounds General: Yes no CVA tenderness Back/Spine/Pelvis Back: no CVA tenderness Thoracic/Lumbar Spine: thoracic and lumbar spine normal to inspection Skin Lesions: no lesions Rashes: no rashes Neuro General: patient oriented x3, moves all extremities, no focal motor deficits and CN's II-XI intact bilaterally Cranial nerves: Yes Equal, round and reactive pupils present Cognition (Neuro): normal cognition Gait exam (Neuro): Normal gait present Extrem General: Yes no clubbing, cyanosis or edema Results Reviewed Results Reviewed: Laboratory Tests 02/12/25 02/12/25 08:53 08:59 WBC 6.0 Hgb 14.2 Hct 41.8 L Plt Count 149 L Sodium 142 Potassium 4.4 Creatinine 0.65 Estimated GFR > 60 Fasting Glucose 96 Hemoglobin A1c % 5.1 Calcium 9.2 AST 20 ALT 14 Triglycerides 96 Cholesterol 207 H LDL Cholesterol, Calc 138 H HDL Cholesterol 50 25-OH Vitamin D Total 33.5 TSH 0.80 Ur Specific Hector 1.020 Urine Protein Negative Urine Glucose (UA) Negative Urine Blood Negative Urine Nitrite Negative Ur Leukocyte Esterase Negative Coding Level of Care Code Est Pt Prev Care 40-64y(21008) Diagnoses Annual physical exam Z00.00 Pure hypercholesterolemia E78.00 Vitamin D deficiency E55.9 Carpal tunnel syndrome of left wrist G56.02 Constipation, unspecified constipation type K59.00 Constipation type: unspecified constipation type Nocturia R35.1 Anxiety F41.9 Episode of recurrent major depressive disorder, unspecified depression episode severity F33.9 Depression Type: major depressive disorder Major depression recurrence: recurrent Active/Remission status: currently active Major depression episode severity: unspecified Assessment & Plan Assessment & Plan (1) Annual physical exam: Code(s): Z00.00 - Encounter for general adult medical examination without abnormal findings Category: Medical Plan: Results of his labs done a few days ago reviewed and discussed with patient Will have him check his serum PSA level and testoterone level OLIVIA to complete his annual exam today He is currently up-to-date with his colon cancer screening - he had his initial screening colonoscopy done back in 2021 and at that time was advised to get repeat colonoscopy in 3-4 months but patient states that this never happened and he finally had his repeat colonoscopy done again earlier this year on 05/27/2024 He had 3 polyps removed that came out as tubular adenomas on pathology and he was recommended to undergo repeat colonoscopy again in 2 to 3 years (2) Pure hypercholesterolemia: Code(s): E78.00 - Pure hypercholesterolemia, unspecified Category: Medical Plan: Reinforced low-cholesterol diet Patient's cholesterol levels have improved from earlier this year but are still higher than recommended, with his total cholesterol at 207 mg/dL and LDL cholesterol 138 mg/dL He continues to decline pharmacotherapy for his cholesterol Will have him recheck his fasting lipids and labs in 6 months for follow up (3) Vitamin D deficiency: Code(s): E55.9 - Vitamin D deficiency, unspecified Category: Medical Plan: Corrected Continue Vitamin D3 2000 units QD (4) Carpal tunnel syndrome of left wrist: Code(s): G56.02 - Carpal tunnel syndrome, left upper limb Category: Medical Plan: EMG & NCV done in March 2021 revealed (+) early carpal tunnel syndrome on his left upper extremity; EMG is normal EMG and NCV findings are normal on the right upper extremity Reinforced use of wrist splints as needed to help manage his left wrist symptoms - states that his left wrist has not really been bothering him too much lately (5) Constipation: Comment: consistent bowel regimen- HFD Code(s): K59.00 - Constipation, unspecified Category: Medical Qualifiers: Constipation type: unspecified constipation type Qualified Code(s): K59.00 - Constipation, unspecified Plan: He is again encouraged on increased oral fluids and dietary fiber intake States that his constipation has been adequately controlled so far on Miralax 17 gm QD (6) Nocturia: Code(s): R35.1 - Nocturia Category: Medical Plan: Advised patient that this is likely due to BPH Will have him go and get his serum PSA level checked OLIVIA for further evaluation Will also refer him to urology for further evaluation and management (7) Anxiety: Code(s): F41.9 - Anxiety disorder, unspecified Category: Medical Plan: He is doing well on Citalopram 10 mg QD (8) Depression: Code(s): F32.A - Depression, unspecified Category: Medical Qualifiers: Depression Type: major depressive disorder Major depression recurrence: recurrent Active/Remission status: currently active Major depression episode severity: unspecified Qualified Code(s): F33.9 - Major depressive disorder, recurrent, unspecified Plan: Continue Citalopram 10 mg QD Follow up with psychiatry as scheduled Plan Follow up in 6 months Orders: Orders Testosterone, Free/Total 02/15/25 R79.89 - Other specified abnormal findings of blood chemistry Lipid Panel 6 Months E78.00 - Pure hypercholesterolemia, unspecified Prostate Specific Antigen 02/15/25 N40.0 - Benign prostatic hyperplasia without lower urinary tract symptoms Comprehensive [place]xtell. Panel Fast 6 Months E78.00 - Pure hypercholesterolemia, unspecified Referrals Urology Referral R35.1 - Nocturia
--- OUTSIDE RECORDS SUMMARY | 2025-02-15 19:58 | XMS_ITS | Clinical Summary ---
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 Name Role Phone Kaden Rinaldi MD Primary Care Provider [phone] Allergies No known active allergies Medications citalopram [...] topic Medical Devices Not on file Insurance [facility] [place] [address] [place] [address] [place] [address] [place] [address] [place] [address] [place] [address] [place] [address] [place] [address] [place] [address] [place] [address] [place] [address] [place] [address] [place] [address] [place] [address] PPO EPO [facility] PPO EPO [employer] Care Teams Electric Sealing Machine Operator Relationship Specialty Start Date End Date Kaden Rinaldi MD [address] [place] [address] [address] [place] [id number] PCP - General Internal Medicine 10/19/18 Additional Source Comments The information contained in this document represents components of the legal health record. It is not the complete legal health record.[facility]
== END 2025-02-15 17:01 | disposition home or self-care (01) ==
LOC: HO.HMCH 15:49
PROVIDERS: PCP Internal Medicine; Visit Provider Internal Medicine
DX: Z00.00 Encounter for general adult medical examination without abnormal findings (principal); E78.00 Pure hypercholesterolemia, unspecified; E55.9 Vitamin D deficiency, unspecified; G56.02 Carpal tunnel syndrome, left upper limb; K59.00 Constipation, unspecified; R35.1 Nocturia; F41.9 Anxiety disorder, unspecified; F33.9 Major depressive disorder, recurrent, unspecified